=== PATIENT | male | born 1955 | race Caucasian/White ===

== ENCOUNTER 2018-02-17 00:15 | Outpatient (CLI) | payer BC, SELFPAY ==
[2018-02-17 10:45] LABS: Anion Gap 8.9 mmol/L (3-11); BUN 23 mg/dL (7-18); CO2 27.1 mmol/L (21.0-32.0); CREATININE 1.34 mg/dL (0.70-1.30); Chloride 103 mmol/L (98-107); Estimated GFR 54.19 (mL/min/1.73m2); Glucose 96 mg/dL (70-100); Potassium 4.4 mmol/L (3.5-5.1); Sodium 139 mmol/L (136-145); TSH 5.02 uIU/mL (0.358-3.74)
== END 2018-02-17 00:35 ==
PROVIDERS: PCP General Practice; Visit Provider General Practice
DX: I10 Essential (primary) hypertension (principal); E03.9 Hypothyroidism, unspecified; R73.01 Impaired fasting glucose
CPT/HCPCS: 36415; 80051; 82947; 84520; 82565; 84443

== ENCOUNTER 2019-02-18 01:33 | Outpatient (CLI) | payer BC, SELFPAY ==
[2019-02-18 09:57] LABS: CREATININE 1.46 mg/dL (0.70-1.30); Estimated GFR 48.92 (mL/min/1.73m2); Glucose 94 mg/dL (70-100); Potassium 4.1 mmol/L (3.5-5.1); TSH 6.35 uIU/mL (0.36-3.74)
== END 2019-02-18 01:53 ==
PROVIDERS: PCP General Practice; Visit Provider General Practice
DX: Z00.00 Encounter for general adult medical examination without abnormal findings (principal); I10 Essential (primary) hypertension; E03.9 Hypothyroidism, unspecified
CPT/HCPCS: 36415; 82947; 82565; 84132; 84443

== ENCOUNTER 2019-05-06 14:25 | Outpatient (REF) | payer BC, SELFPAY ==
[2019-05-06 18:34] LABS: HGB 14.6 g/dL (13.5-17.5); Mean Corp. HGB Concentration 33.2 g/dL (32.0-36.0); Mean Corpuscular Hemoglobin 31.8 pg (27.0-33.0); Mean Corpuscular Volume 95.9 fL (80-95); Mean Platelet Volume 11.8 fL (8.0-11.0); Platelet Count 216 x1000/uL (130-400); RBC 4.59 m/cumm (4.50-6.00); White Blood Cell Count 8.34 k/cumm (4.4-10.8)
[2019-05-06 18:41] LABS: Bilirubin Negative (Negative); Blood Negative (Negative); Clarity Clear (Clear); Glucose Negative (Negative); Ketones Negative (Negative); Leukocyte Esterase Negative (Negative); Nitrite Negative (Negative); Specific Gravity 1.025 (1.005-1.025); Urobilinogen 0.2 EU/dL (Up TO 0.2); pH 6.5 (5-8)
[2019-05-06 19:21] LABS: Microalb ug/mg Crea 9.5 ug/mg Cr
[2019-05-06 19:23] LABS: ALT 29 U/L (16-63); AST 18 U/L (15-37); Albumin 3.9 g/dL (3.4-5.0); Alkaline Phosphatase 74 U/L (46-116); Anion Gap 9.1 mmol/L (3-11); BUN 19 mg/dL (7-18); Bilirubin, Total 0.5 mg/dL (0.2-1.0); CO2 26.9 mmol/L (21.0-32.0); CREATININE 1.19 mg/dL (0.70-1.30); Calcium 9.2 mg/dL (8.5-10.1); Calculated LDL 62 mg/dL (<100); Chloride 103 mmol/L (98-107); Cholesterol 138 mg/dL (<200); Glucose 91 mg/dL (74-106); HDL Cholesterol 29 mg/dL (40-60); Potassium 4.2 mmol/L (3.5-5.1); Sodium 139 mmol/L (136-145); TSH (W/Ref FT4) 5.75 uIU/mL (0.36-3.74); Total Protein 7.4 g/dL (6.4-8.2); Triglyceride 237 mg/dL (<150)
[2019-05-06 19:56] LABS: FREE T4 1.11 ng/dL (0.76-1.46)
== END 2019-05-06 14:45 ==
LOC: NCHCN 14:25
PROVIDERS: PCP Nurse Practitioner Family; Visit Provider Nurse Practitioner Family
DX: E03.9 Hypothyroidism, unspecified (principal); E78.5 Hyperlipidemia, unspecified; I10 Essential (primary) hypertension
CPT/HCPCS: 80053; 80061; 85027; 81003; 82043; 82570; 84439; 84443

== ENCOUNTER 2019-06-06 14:07 | Outpatient (CLI) | payer BC, SELFPAY ==
[2019-06-10 09:39] LABS: PSA, Screening 0.4 ng/mL (0.0-4.5)
== END 2019-06-06 14:27 ==
PROVIDERS: PCP Nurse Practitioner Family; Visit Provider Nurse Practitioner Gerontology
DX: N40.1 Benign prostatic hyperplasia with lower urinary tract symptoms (principal); Z12.5 Encounter for screening for malignant neoplasm of prostate
CPT/HCPCS: 36415; 84153

== ENCOUNTER 2019-10-21 13:48 | Outpatient (REF) | payer BC, SELFPAY ==
[2019-10-21 18:17] LABS: TSH (W/Ref FT4) 4.84 uIU/mL (0.36-3.74)
[2019-10-21 18:39] LABS: FREE T4 0.99 ng/dL (0.76-1.46)
[2019-10-23 10:08] LABS: HIV-1/2 Ag & Ab Screen Negative (Negative)
[2019-10-23 10:28] LABS: Hepatitis C Ab w Rflx HCV PCR Negative (Negative)
== END 2019-10-21 14:08 ==
LOC: NCHCN 13:48
PROVIDERS: PCP Nurse Practitioner Family; Visit Provider Nurse Practitioner Family
DX: Z00.00 Encounter for general adult medical examination without abnormal findings (principal); E03.9 Hypothyroidism, unspecified; Z11.59 Encounter for screening for other viral diseases; Z11.4 Encounter for screening for human immunodeficiency virus [HIV]
CPT/HCPCS: 86803; 87389; 84439; 84443

== ENCOUNTER 2019-10-24 07:55 | Day surgery (SDC) | payer BC, SELFPAY ==
[2019-10-24 08:20] VITALS: BP 113/74; PULSE 75; RESP 16; TEMP 36.5; O2SAT 98
--- NOTE | 2019-10-24 08:46 | W.COLOREPORT ---
Date of service: 10/24/19 Time of Service: 08:46 Colonoscopy Report Date of procedure: 10/24/19 Pre-op diagnosis general: A. polyps Post-op diagnosis procedure note: same (Normal:) Procedure: Colonoscopy Surgeon: Whitney Robles Anesthesia proc note operative: MAC Estimated blood loss (mL): 0 Pathology: none sent Complications: None Disposition: same day Prep: Miralax/Dulcolax Retraction Time: 8 mins Procedure Description: After informed consent was obtained the patient was taken to the procedure room and placed in a left decubitous position. Monitors were applied and a time out was done. The patients name, date of , procedure, allergies to medications and metal in their body was reviewed. The patient was then sedated. Once sedated and comfortable a rectal exam was done. External exam was normal. He does have a lot of scarring in the rectal area from previous surgeries. Internal exam revealed a lax sphincter tone and no palpable masses. The prostate was not palpable. The scope was then introduced and retrofelexed. no internal hemorrhoids were identified. The scope was then advanced to the cecum without difficulty. The TI and appendiceal orifice were identified. The prep was good. The scope was then slowly retracted over 8 minutes back into the rectum. No polyps AVMs or diverticula are identified. The mucosa is pink and healthy.. The scope was removed and the patient was woken up and taken back to Same day surgery in stable condition. The patient tolerated the procedure well and there were no immediate complications. Follow up: The patient does not require any further repeat colonoscopies, unless they develop changes in bowel habits or other new gastrointestinal complaints.
[2019-10-24] MEDS: Lactated Ringers 1,000 ML 80 ML IV (08:56)
--- NOTE | 2019-10-24 09:35 | HPE_ITS ---
Date of service: 10/24/19 Time of Service: 09:36 Assessment and Plan Assessment and plan (1) Adenomatous colon polyp: Status: Acute Assessment and plan: Informed consent is obtained for the procedural ( explained in simple layman's terms that the pt and/or family could understand) explaining risks vs benefits and alternatives to the procedure and consequences if we do not do the procedure and need/rational for the procedure. Risks include but are not limited to: bleeding, infection, perforation of esophagus, stomach, colon, small intestines, bronchus or trachea, or PTX. This would necessitate emergency surgery to repair the damage w/ possible ostomy; and other associated complications w/ the required surgery. Also complications of anesthesia including aspiration, SC/CVA/. History of Present Illness Consults Consult date: 10/24/19 Pt seen and examined. He is here today for CE secondary to adenomatous polyps in 2011. He completed the prep. He denies any CP or SOB. He denies any abdominal pain. completed prep but ate a tuna sandwich last pm. No changes in meds or health status. Narrative: Pt seen at the request of PCP regarding colon cancer screening. Pt has had a CE in 2011, adn had an A. polyp at .. Denies problems with constipation, diarrhea. No pain or difficulty with bowel movements. Denies rectal bleeding. There is no family history of any colon cancer. Pt has not had any weight loss. Their appetite is good. No heart, lung, or kidney problems. No heartburn or indigestion. No prior colo-rectal surgery. No problems with anesthesia in the past. pt takes fiber daily. He is on baclofen which makes him constipated, but as long as he takes his fiber he is fine. Patient has a history of: DM: no CVA/SC: in 2012 CPAP use: no Blood thinners: no Kidney disease: no Review of Systems All systems reviewed & are unremarkable except as noted in HPI and below PFSH Medical History Adenomatous colon polyp (Acute) BPH (benign prostatic hyperplasia) (Chronic) Colon polyps (Acute) Foot drop, left (Acute) wears brace on (L) Hemorrhagic stroke (Acute) occured 07/16/09 HLD (hyperlipidemia) (Acute) HTN (hypertension) (Chronic) Hypothyroid (Chronic) Urinary urgency (Acute) Surgical History History of colonoscopy (Chronic) Social History Smoking/Tobacco Use Status: Never Alcohol Intake: current Alcohol Intake frequency: holidays/special occasions only Alcohol type: beer Drug use: Never Substance use type: does not use Do you feel safe at home: Yes Do you feel safe in your relationship?: Yes Meds Home Medications and Allergies Home Medications Medication Instructions Recorded Confirmed Type diltiazem HCl 240 mg PO DAILY 12/25/12 10/24/19 History lisinopril 10 mg PO DAILY 12/25/12 10/24/19 History simvastatin 20 mg PO DAILY 12/25/12 10/24/19 History baclofen 10 mg tablet 10 mg PO QHS PRN 05/09/19 10/24/19 History levothyroxine 100 mcg capsule 100 mcg PO DAILY 05/09/19 10/24/19 History multivitamin 1 cap PO DAILY 05/23/19 10/24/19 History doxazosin 4 mg tablet 8 mg PO QHS #90 tab 09/24/19 10/24/19 Rx bisacodyl 5 mg tablet,delayed 5 mg PO ONCE #4 tab 10/01/19 10/24/19 Rx release polyethylene glycol 3350 17 238 g PO ONCE #238 gm 10/01/19 10/24/19 Rx gram/dose oral powder Allergies Allergy/AdvReac Type Severity Reaction Status Date / Time No Known Allergies Allergy Unverified 10/23/19 09:52 Exam Const General: cooperative, healthy appearing, comfortable, no acute distress, well developed and well groomed Nutritional Appearance: average body habitus and well nourished Orientation: alert, awake and oriented x3 HENCO Head: normal to inspection, normocephalic and atraumatic Ears: hearing grossly normal bilaterally and external ears normal General nose exam: external nose normal Face and sinus: normal facial exam and sinuses nontender Mouth: oral mucosae normal, lip normal, tongue normal and moist mucous membranes Teeth and gingiva: dentition normal Eyes General: appearance normal, both eyes and all related structures Conjunctivae: conjunctivae normal Sclera: sclerae normal Pupils: PERRL Neck Neck: normal visual inspection and full ROM Chest Chest: normal inspection of the chest Resp Effort & Inspection: normal respiratory effort, able to speak in complete sentences, no cough, no nasal flaring, not tachypneic and no use of accessory muscles Auscultation: clear to auscultation bilaterally, no rales, no rhonchi and no wheezes Cardio Jugular venous pressure: no JVD Rate: regular rate Rhythm: regular rhythm GI Inspection: normal to inspection, no edema and non-distended Palpation: soft, no masses, nontender and No ascites Auscultation: normal bowel sounds Skin General skin exam: no rashes or lesions noted Trauma: no lacerations or abrasions Neuro General: patient alert, patient oriented x3, oriented, gait normal, moves all extremities, no focal motor deficits and CN's II-XI intact bilaterally Cognition: normal cognition Speech: speech normal Gait: normal gait Motor: muscle tone normal throughout Extrem General: normal to inspection, full ROM and no clubbing, cyanosis or edema Psych Appearance: grossly normal and well kempt Mental Status: mental status grossly normal Speech and Movement: speech and movement normal Affect: normal affect Results Last Vital Signs Temp 36.5 C 10/24/19 08:20 Pulse 75 10/24/19 08:20 Resp 16 10/24/19 08:20 BP 113/74 10/24/19 08:20 Pulse Ox 98 10/24/19 08:20 COVID-19 Screening Have you,or household,traveled outside [place] in last 14 days?: Yes Had IN PERSON contact w/suspected or confirmed C-19 person: No
--- NOTE | 2019-10-24 10:19 | W.PM.DSUDISC ---
Discharge Plan Disposition Patient Disposition: HOME Condition: Good Discharge Details Reason For Visit: colon scope Attending Provider: Whitney Robles Primary Care Provider: [place] Home Meds and New Rx's Prescriptions: Continued baclofen 10 mg tablet 10 mg PO QHS PRNRF: 0 levothyroxine 100 mcg capsule 100 mcg PO DAILY RF: 0 multivitamin Capsule 1 cap PO DAILY RF: 0 doxazosin 4 mg tablet 8 mg PO QHS Qty: 90 RF: 3 lisinopril 10 MG tablet 10 mg PO DAILY RF: 0 diltiazem HCl 240 MG capsule,extended release 24hr 240 mg PO DAILY RF: 0 simvastatin 20 MG tablet 20 mg PO DAILY RF: 0 Discontinued polyethylene glycol 3350 17 gram/dose powder 238 g PO ONCE Qty: 238 RF: 0 bisacodyl [Dulcolax (bisacodyl)] 5 mg tablet,delayed release (DR/EC) 5 mg PO ONCE Qty: 4 RF: 0 Discharge Instructions Additional Instructions: Findings:normal Follow up: does not require any further colon scopes. If you notice any unexplained weight loss, any pain or difficulty having a bowel movement, any rectal bleeding that persists for more than 2 weeks, or changes in your bowel habits, you should see your primary care provider and these symptoms may require repeat colonoscopy. Please call if you develop: fevers >101.5 Nausea or Vomiting Abdominal pain that is not transient DAY SURGERY UNIT POST COLONOSCOPY INSTRUCTIONS 1. Because there will be medication in your system for the next 24 hours, you may feel a little sleepy. Your coordination will be affected. Therefore: a. Do not drive or operate dangerous equipment for 24 hours. b. Do not drink alcohol beverages for 24 hours (not even beer). c. Plan to go home and rest for the day. 2. Generally there are no restrictions on your activity after a day or so has gone by, but you may feel a bit fatigued for a few days. 3 After you arrive home you may have a light meal and return to a normal diet as you can tolerate it without feeling sick to your stomach. 4. After surgery, you may feel pain or discomfort. This should be only transient, but if it persists please contact your doctor. 5. If there are any questions regarding the findings of your procedure, please feel free to contact your doctor. 6. If you are unable to contact your doctor with a problem, contact the hospital at [phone]. 7. Continue all your regular medications unless directed otherwise. I understand the above instructions and have no questions. Signature of Patient or Responsible Adult Escort Date/Time Name of Responsible Adult Escort Signature of Nurse Date/Time Activity:: No lifting over 20 pounds or strenuous activity x24 hours Diet:: Small light meals x24 hours Discharge Orders Discharge Orders: Discharge Order (Routine); Ordered 10/24/19 Ordered By: Whitney Robles DS: Diagnosis Discharge Diagnosis (1) Adenomatous colon polyp: Status: Acute
[2019-10-24 11:00] VITALS: BP 124/55; PULSE 63; RESP 16; TEMP 35.9; O2SAT 96
== END 2019-10-24 11:30 | disposition home or self-care (01) ==
PROVIDERS: PCP Nurse Practitioner Family; Visit Provider Surgery
PROC: 0DJD8ZZ Inspection of Lower Intestinal Tract, Via Natural or Artificial Opening Endoscopic (ICD-10-PCS; CPT 45378; principal; 2019-10-24 09:00)
DX: Z12.11 Encounter for screening for malignant neoplasm of colon (principal); Z86.010 Personal history of colon polyps
CPT/HCPCS: 45378; NC; J2704

== ENCOUNTER 2020-02-14 20:37 | Emergency (ER) | payer BC, SELFPAY ==
[2020-02-14 20:39] VITALS: BP 147/72; PULSE 73; RESP 16; TEMP 36.7; O2SAT 96
--- NOTE | 2020-02-14 20:47 | ED.GENADUL_ITS ---
Discharge Plan Disposition Patient Disposition: [facility] Condition: Good Discharge Details Clinical Impression: Chronic right-sided back pain, Lesion of bone of thoracic spine Primary Care Provider: [facility] ED Provider: Federico Kwok Home Meds and New Rx's Prescriptions: No Action baclofen 10 mg tablet 10 mg PO QHS PRNRF: 0 levothyroxine 100 mcg capsule 100 mcg PO DAILY RF: 0 multivitamin Capsule 1 cap PO DAILY RF: 0 doxazosin 4 mg tablet 8 mg PO QHS Qty: 90 RF: 3 lisinopril 10 MG tablet 10 mg PO DAILY RF: 0 diltiazem HCl 240 MG capsule,extended release 24hr 240 mg PO DAILY RF: 0 simvastatin 20 MG tablet 20 mg PO DAILY RF: 0 Medical Decision Making This is a 64 year old male with a past medical history of hypertension, high cholesterol, hemorrhagic stroke with chronic left-sided deficits subsequently because of this, who presents today for evaluation of back pain. Patient states that for the last 3 to 4 weeks he has had mild right-sided back pain which he attributes to using an uneven distribution of muscles secondary to his chronic left-sided deficits. He denies any recent falls, he denies any falls preceding the onset of symptoms. He presents tonight because he states that he has been getting worse and he has not been able to sleep. He denies any new associated numbness or tingling. He does admit to difficulty with urination and bowel movements and has not had a bowel movement for the last couple of days however he states that this is not overly typical for him. He denies any new focal weakness. He denies any fever or chills, IV illicit drug use or other complaints. Physical exam demonstrates mild reproducible tenderness over T12-L1 on the right just off of midline. No deficit ulcer or rash. The patient does have baseline neurologic deficit in the left lower extremity, baseline weakness. Does not appear to demonstrate any sarah saddle anesthesia. He has historical components of bowel and bladder difficulties seem to be more chronic than acute however this all does lead to some concern. Because of his age, and his symptoms and clinical history we will get a CT scan to evaluate for fracture or significant abnormality. We will give NSAIDs and muscle relaxants help with the pain. Will monitor closely. 11:[address] scan results have returned, concerning findings are present with metastatic T12 lesion, virtual radiology suspects concern for extension into the epidural space/spinal canal with clear MRI recommendation. There is also evidence of a notable left renal mass concerning for renal cell carcinoma, suspected metastatic lesions in the lungs and other areas. Repeat exam is challenging to differentiate acute versus chronic. While he does have some weakness on the left hand and leg, he does not have any significant rectal tone deficit, or saddle anesthesia. He continues to demonstrate good dorsiflexion of the great toe bilaterally, and he continues to only be able to excrete some small amounts of urine though. Clinically I do not see any current clear signs of overt cord compression however to be clear it is challenging with his chronic deficits when comparing to potential acute components. We did speak to department neurosurgeon Dr. Villalobos, at this time he also echoes the need for urgent MRI, and does not feel that the patient needs surgical intervention emergently at this time but does feel that the patient needs to be further evaluated. He does recommend transfer to a place where the patient can receive his MRI and be managed for his new diagnosis of renal cell carcinoma by the medical team. While we have no beds available here, I have called multiple other surrounding facilities and they also do not have MRI Capabilities over the weekend. Additionally most of our surrounding facilities are also full. This scenario is again discussed with [facility], and at this time through shared decision-making process the patient will be transferred to [facility] emergency department for MRI and neurosurgical evaluation with reassessment leading to finalize disposition. I discussed the case with the ED physician , he agrees with the assessment and plan. Patient will be transferred to the [facility] ED. I have extensively reviewed the treatment plan with the patient. I have addressed all patient concerns at this time. I have also discussed the plan with the admitting physician and they agree with the current assessment and plan and have agreed to assume responsibility for the patient. All parties demonstrate verbal understanding and agreement with our assessment and plan at this time. At time of transfer the patient was reassessed and continued to demonstrate current medical stability. No signs of acute respiratory distress requiring intubation, hemodynamic instability requiring pressor support, or rapidly declining mental status. The patient is stable for transport. FINDINGS: Vertebrae: There are skeletal degenerative changes. Multilevel vacuum disc phenomenon is seen. There is a 3.3 cm rounded lucency within the posterior aspect of vertebral body T12 with cortical thinning and cortical disruption. This is most consistent with a metastatic focus. A soft tissue component appears to extend posteriorly into the region of the epidural space/spinal canal. An MRI with and without contrast is recommended for further evaluation of this lesion and to assess the integrity of the spinal cord. Disc spaces are preserved. 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 L1-L2: No significant disc protrusion. L2-L3: No significant disc protrusion. L3-L4: Small disc bulge. L4-L5: Small disc bulge. L5-S1: Small disc bulge. Soft tissues: Partially imaged left renal mass. Please refer to CT scan of the abdomen and pelvis for further information regarding this finding. There are vascular calcifications. IMPRESSION: 1. Findings most consistent with a metastatic focus in the T12 vertebral body. There is associated cortical thinning and disruption. A soft tissue component appears to extend posteriorly into the region of the epidural space/spinal canal. An MRI with and without contrast is recommended for further evaluation of this lesion and to assess the integrity of the spinal cord. 2. Partially imaged left renal mass, worrisome for renal cell carcinoma. Please refer to CT scan of the abdomen and pelvis for further information regarding this finding. 3. Other findings/details as above. Thank you for allowing us to participate in the care of your patient. Dictated and Authenticated by: Charlotte England MD 02/14/2020 10:38 PM Eastern Time ([place] & [place]) FINDINGS: Lungs: Multiple nodular densities are noted in the lower lungs bilaterally, worrisome for metastatic disease. These measure up to [address] scan of the chest would be beneficial. Pleural space: There are small bilateral pleural effusions. Liver: Homogeneous liver. Gallbladder and bile ducts: No calcified gallstones identified. Pancreas: Homogeneous pancreas. Spleen: No splenomegaly. Adrenal glands: Normal appearance to the adrenal glands. Kidneys and ureters: There is a heterogeneous mass arising from the upper pole of the left kidney measuring approximately 8.3 cm. This is worrisome for renal cell carcinoma. Just above this lesion is a nodular soft tissue mass in the adjacent perinephric fat worrisome for disease involvement. There is also stranding of the adjacent fat which abuts the pancreatic tail. An element of infection, pancreatitis, or a small amount of ana luisa-lesional hemorrhage is not entirely excluded. Stomach and bowel: No evidence of bowel obstruction. Appendix: No evidence of appendicitis. Intraperitoneal space: No free air Vasculature: Calcifications are noted in the pelvic vasculature and seminal vesicles. Vascular calcifications are also seen elsewhere. Lymph nodes: . There is a prominent lymph node along medial aspect of the left hemidiaphragm, series 3, image 21, which measures 1.2 cm in short axis, concerning for disease involvement. There is a prominent periportal lymph node on series 3, image 26 measuring 1.0 cm in short axis for which disease involvement is not entirely excluded. Urinary bladder: Grossly within normal limits. Reproductive: See above. Bones/joints: There is a 3.3 cm rounded lucency within the posterior aspect of vertebral body T12 with cortical thinning and cortical disruption. This is most consistent with a metastatic focus. A soft tissue component appears to extend posteriorly into the region of the epidural space/spinal canal. An MRI with and without contrast is recommended for further evaluation of this lesion and to assess the integrity of the spinal cord. Soft tissues: Small fat containing umbilical hernia. IMPRESSION: 1. Left renal mass worrisome for/most consistent with renal cell carcinoma. Just above this lesion is a nodular soft tissue mass in the adjacent perinephric fat worrisome for disease involvement. There is also stranding of the adjacent fat which abuts the pancreatic tail. An element of infection, pancreatitis, or a small amount of lesional hemorrhage is not entirely excluded. Correlation suggested. This can be further evaluated with a contrast-enhanced CT scan. 2. Findings most consistent with a metastatic focus in the T12 vertebral body. There is associated cortical thinning and disruption. A soft tissue component appears to extend posteriorly into the region of the epidural space/spinal canal. An MRI with and without contrast is recommended for further evaluation of this lesion and to assess the integrity of the spinal cord. 3. Multiple nodules in the lower lungs bilaterally worrisome for/most consistent with metastatic disease. A dedicated CT scan of the chest is suggested for further evaluation. 4. Prominent lymph nodes as described for which disease involvement is not excluded. Small bilateral pleural effusions. Other findings/details as above. Thank you for allowing us to participate in the care of your patient. Dictated and Authenticated by: Charlotte England MD 02/14/2020 10:28 PM Eastern Time ([place] & [place]) HPI General Date/Time Provider Initiated Documentation: 02/14/20 20:45 . History of Present Illness 64 year old M presents to the emergency department with the chief complaint of 64-year-old male with a past medical history of previous stroke w, HPI Narrative: This is a 64 year old male with a past medical history of hypertension, high cholesterol, hemorrhagic stroke with chronic left- sided deficits subsequently because of this, who presents today for evaluation of back pain. Patient states that for the last 3 to 4 weeks he has had mild right-sided back pain which he attributes to using an uneven distribution of muscles secondary to his chronic left-sided deficits. He denies any recent falls, he denies any falls preceding the onset of symptoms. He presents tonight because he states that he has been getting worse and he has not been able to sleep. He denies any new associated numbness or tingling. He does admit to difficulty with urination and bowel movements and has not had a bowel movement for the last couple of days however he states that this is not overly typical for him. He denies any new focal weakness. He denies any fever or chills, IV illicit drug use or other complaints. Related Data Home Medications Medication Instructions Recorded Confirmed diltiazem HCl 240 mg PO DAILY 12/25/12 02/14/20 lisinopril 10 mg PO DAILY 12/25/12 02/14/20 simvastatin 20 mg PO DAILY 12/25/12 02/14/20 baclofen 10 mg tablet 10 mg PO QHS PRN 05/09/19 02/14/20 levothyroxine 100 mcg capsule 100 mcg PO DAILY 05/09/19 02/14/20 multivitamin 1 cap PO DAILY 05/23/19 02/14/20 doxazosin 4 mg tablet 8 mg PO QHS #90 tab 09/24/19 02/14/20 Previous Rx's Medication Instructions Recorded doxazosin 4 mg tablet 8 mg PO QHS #90 tab 09/24/19 Allergies Allergy/AdvReac Type Severity Reaction Status Date / Time No Known Allergies Allergy Unverified 10/23/19 09:52 General Stated Complaint: Nk/Back Pain MEGAN: 4 Review of Systems All systems reviewed & are unremarkable except as noted in HPI and below [facility] Medical History (Updated 02/15/20 @ 01:19 by Federico Kwok DO) Adenomatous colon polyp BPH (benign prostatic hyperplasia) Colon polyps Foot drop, left wears brace on (L) Hemorrhagic stroke occured 07/16/09 HLD (hyperlipidemia) HTN (hypertension) Hypothyroid Urinary urgency Surgical History History of colonoscopy Social History Smoking/Tobacco Use Status: Never Smoking risk assessment performed?: Yes Alcohol Intake: current Alcohol Intake frequency: holidays/special occasions only Alcohol type: beer Drug use: Never Substance use type: does not use Do you feel safe at home: Yes Do you feel safe in your relationship?: Yes Exam Narrative Exam Narrative: 1.Const: Well-nourished, Well-developed, appearing stated age 2.Eyes: PERRL, no conjunctival injection, and symmetrical lids. 3.ENT: Atraumatic external nose and ears. Moist MM. Neck: Symmetric, trachea midline, No thyromegaly. 4.CVS: +S1/S2, No murmurs or gallops. Peripheral pulses 2+ and equal in all extremities. Brisk capillary refill in all extremities. 5.RESP: Unlabored respiratory effort. Clear to auscultation bilaterally. No wheezes rales or rhonchi 6.GI: Soft, Nontender/Nondistended, No hepatosplenomegaly. No guarding or rebound. 7.MSK: Mild weakness in the left upper and left lower extremity, no saddle anesthesia, no significant deficit in rectal tone. Good sensation for the upper and lower extremities, 5 out of 5 strength of the right upper and lower extremity, 4 out of 5 strength for the left upper and left lower extremity. Palpation of the spine demonstrates no midline tenderness of the cervical thoracic or lumbar spine however he does have mild midline right-sided paraspinal tenderness around T12-L1. Good dorsiflexion of the great toe bilaterally 8.Skin: Warm, Dry. No rashes or lesions. No evidence of rash or decubitus ulcer 9.Neuro: vault mechanic II-XII grossly intact. Sensation grossly intact, no focal neurologic deficits. 10.Psych: (AAO) x3. Appropriate mood and affect Course Vital Signs Vital signs: Vital Signs Temperature 36.7 C 02/14/20 20:39 Pulse 73 02/14/20 20:39 Respiratory Rate 16 02/14/20 20:39 Blood Pressure 147/72 H 11/06/20 20:39 Pulse Oximetry 96 02/14/20 20:39 Temperature 36.7 C 02/14/20 20:39 Temperature Source Skin 02/14/20 20:39 Pulse 73 02/14/20 20:39 Respiratory Rate 16 02/14/20 20:39 Respiratory Effort 02/14/20 20:41 Blood Pressure 147/72 H 02/14/20 20:39 Blood Pressure Position Sitting 02/14/20 20:39 Pulse Oximetry 96 02/14/20 20:39 Pain Level 7 02/14/20 20:41
[2020-02-14] MEDS: Acetaminophen 500 MG TAB 1000 MG PO (21:03)
[2020-02-14] MEDS: Lidocaine 5% Patch 1 PATCH TP (21:03)
[2020-02-14] MEDS: Cyclobenzaprine 10 MG TAB PO (21:03)
[2020-02-14 21:21] LABS: Bilirubin Negative (Negative); Blood Negative (Negative); Clarity Sl Cloudy (Clear); Glucose Negative (Negative); Ketones Negative (Negative); Leukocyte Esterase Negative (Negative); Nitrite Negative (Negative); Specific Gravity >= 1.030 (1.005-1.025); Urobilinogen 0.2 EU/dL (Up TO 0.2); pH 5.5 (5-8)
--- NOTE | 2020-02-14 21:22 | DI.CT_ITS ---
EXAM: CT ABDOMEN PELVIS WO INDICATION: right low back pain, r/o malignancy,fx,stone. COMPARISON: CT CT LUMBAR SPINE RECONS from 02/14/2020 FINDINGS: CT examination of the abdomen and pelvis was performed without oral or IV contrast. Additional recons tructions of the lumbar spine were obtained. There are multiple pulmonary nodules in both lung bases highly suspicious for metastatic disease, the largest lies in the left lung base and measures up to about 17 millimeters in diameter. There are s mall bilateral pleural effusions. There is a large irregular mass of the upper pole of the left kidney measuring up to about 8 cm in di ameter with adjacent perinephric fat stranding and lobulated contour. The mass abuts the tail of the pancreas and the spleen, direct invasion of these organs not excluded, the mass also abuts the left a drenal gland. Left para diaphragmatic lymph node is enlarged at about 18 millimeters, suspicious for metastatic disease. No urinary tract calcification. No right or left hydronephrosis. Urinary bladder is nearly empty. No focal bowel pathology identified. No significant abdominal wall hernia. No convincing retroperit siddiqi or pelvic adenopathy. Liver and spleen are unremarkable in appearance by noncontrast criteria. Gallbladder and bile ducts are CT normal. No significant abdominal wall hernia is seen. There is a lytic lesion of the T12 vertebral body posteriorly which may invade the spinal canal. Fin dings are highly suspicious for metastatic disease. Probable 20 millimeter in diameter right femoral neck lesion also noted, suspicious for metastatic di sease. IMPRESSION: Highly suspicious examination for left upper pole renal cell carcinoma with multiple pulmonary metast ases and possible invasion of Perirenal fat and adjacent structures as described above along with a l eft para diaphragmatic lymph node measuring about 18 millimeters in diameter. Multiple pulmonary nodules seen in the lung bases, highly suspicious for metastatic disease. There is an aggressive lytic T12 vertebral body lesion highly suspicious for metastatic disease, this measures about 22 millimeters in greatest diameter and is likely to invade the spinal canal, correla tion with MR examination of this region suggested for further evaluation. Additionally, there is an apparent lytic lesion of the right femoral neck suspicious for metastatic disease. RADIATION DOSE DELIVERED: Total DLP Total DLP
[2020-02-14 21:32] LABS: Bacteria Negative HPF (Negative); C & S Indicated? No; Casts Negative LPF (Negative); Crystals Negative HPF (Negative); Epithelial Cells Rare HPF (Negative); Mucus Trace (Negative); RBC 0-2 HPF (0-2); WBC 0-2 HPF (0-5)
--- NOTE | 2020-02-14 22:05 | NUR.NOTE ---
Pt toook advil 400mg approx 1800. MD Kwok aware, hold toradol for now.
--- NOTE | 2020-02-14 22:28 | DI.VRAD_ITS ---
Addendum created by Charlotte England MD on 02/14/2020 10:43:02 PM EST: THIS REPORT CONTAINS FINDINGS THAT MAY BE CRITICAL TO PATIENT CARE. The findings were verbally communicated via telephone conference with AILIN HAMEED at 10:42 PM EST on 02/14/2020. The findings were acknowledged and understood. Initial report created on 02/14/2020 10:28:06 PM EST: PROCEDURE INFORMATION: Exam: CT Abdomen And Pelvis Without Contrast Exam date and time: 02/14/2020 9:22 PM Age: 64 years old Clinical indication: Other: Right lower back pain TECHNIQUE: Imaging protocol: Computed tomography of the abdomen and pelvis without contrast. Radiation optimization: All CT scans at this facility use at least one of these dose optimization techniques: automated exposure control; mA and/or kV adjustment per patient size (includes targeted exams where dose is matched to clinical indication); or iterative reconstruction. COMPARISON: No relevant prior studies available. FINDINGS: Lungs: Multiple nodular densities are noted in the lower lungs bilaterally, worrisome for metastatic disease. These measure up to [address] scan of the chest would be beneficial. Pleural space: There are small bilateral pleural effusions. Liver: Homogeneous liver. Gallbladder and bile ducts: No calcified gallstones identified. Pancreas: Homogeneous pancreas. Spleen: No splenomegaly. Adrenal glands: Normal appearance to the adrenal glands. Kidneys and ureters: There is a heterogeneous mass arising from the upper pole of the left kidney measuring approximately 8.3 cm. This is worrisome for renal cell carcinoma. Just above this lesion is a nodular soft tissue mass in the adjacent perinephric fat worrisome for disease involvement. There is also stranding of the adjacent fat which abuts the pancreatic tail. An element of infection, pancreatitis, or a small amount of ana luisa-lesional hemorrhage is not entirely excluded. Stomach and bowel: No evidence of bowel obstruction. Appendix: No evidence of appendicitis. Intraperitoneal space: No free air Vasculature: Calcifications are noted in the pelvic vasculature and seminal vesicles. Vascular calcifications are also seen elsewhere. Lymph nodes: . There is a prominent lymph node along medial aspect of the left hemidiaphragm, series 3, image 21, which measures 1.2 cm in short axis, concerning for disease involvement. There is a prominent periportal lymph node on series 3, image 26 measuring 1.0 cm in short axis for which disease involvement is not entirely excluded. Urinary bladder: Grossly within normal limits. Reproductive: See above. Bones/joints: There is a 3.3 cm rounded lucency within the posterior aspect of vertebral body T12 with cortical thinning and cortical disruption. This is most consistent with a metastatic focus. A soft tissue component appears to extend posteriorly into the region of the epidural space/spinal canal. An MRI with and without contrast is recommended for further evaluation of this lesion and to assess the integrity of the spinal cord. Soft tissues: Small fat containing umbilical hernia. IMPRESSION: 1. Left renal mass worrisome for/most consistent with renal cell carcinoma. Just above this lesion is a nodular soft tissue mass in the adjacent perinephric fat worrisome for disease involvement. There is also stranding of the adjacent fat which abuts the pancreatic tail. An element of infection, pancreatitis, or a small amount of lesional hemorrhage is not entirely excluded. Correlation suggested. This can be further evaluated with a contrast-enhanced CT scan. 2. Findings most consistent with a metastatic focus in the T12 vertebral body. There is associated cortical thinning and disruption. A soft tissue component appears to extend posteriorly into the region of the epidural space/spinal canal. An MRI with and without contrast is recommended for further evaluation of this lesion and to assess the integrity of the spinal cord. 3. Multiple nodules in the lower lungs bilaterally worrisome for/most consistent with metastatic disease. A dedicated CT scan of the chest is suggested for further evaluation. 4. Prominent lymph nodes as described for which disease involvement is not excluded. Small bilateral pleural effusions. Other findings/details as above. Dictated and Authenticated by: Charlotte England MD. Ordering:MCKINLEY Caballero MD
--- NOTE | 2020-02-14 22:39 | DI.VRAD_ITS ---
Addendum created by Charlotte England MD on 02/14/2020 10:43:20 PM EST: THIS REPORT CONTAINS FINDINGS THAT MAY BE CRITICAL TO PATIENT CARE. The findings were verbally communicated via telephone conference with AILIN HAMEED at 10:42 PM EST on 02/14/2020. The findings were acknowledged and understood. Initial report created on 02/14/2020 10:38:41 PM EST: PROCEDURE INFORMATION: Exam: CT Lumbar Spine Without Contrast Exam date and time: 02/14/2020 9:22 PM Age: 64 years old Clinical indication: Low back pain TECHNIQUE: Imaging protocol: Computed tomography images of the lumbar spine without contrast. Radiation optimization: All CT scans at this facility use at least one of these dose optimization techniques: automated exposure control; mA and/or kV adjustment per patient size (includes targeted exams where dose is matched to clinical indication); or iterative reconstruction. COMPARISON: CT scan of the abdomen and pelvis from the same date. FINDINGS: Vertebrae: There are skeletal degenerative changes. Multilevel vacuum disc phenomenon is seen. There is a 3.3 cm rounded lucency within the posterior aspect of vertebral body T12 with cortical thinning and cortical disruption. This is most consistent with a metastatic focus. A soft tissue component appears to extend posteriorly into the region of the epidural space/spinal canal. An MRI with and without contrast is recommended for further evaluation of this lesion and to assess the integrity of the spinal cord. Disc spaces are preserved. 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 L1-L2: No significant disc protrusion. L2-L3: No significant disc protrusion. L3-L4: Small disc bulge. L4-L5: Small disc bulge. L5-S1: Small disc bulge. Soft tissues: Partially imaged left renal mass. Please refer to CT scan of the abdomen and pelvis for further information regarding this finding. There are vascular calcifications. IMPRESSION: 1. Findings most consistent with a metastatic focus in the T12 vertebral body. There is associated cortical thinning and disruption. A soft tissue component appears to extend posteriorly into the region of the epidural space/spinal canal. An MRI with and without contrast is recommended for further evaluation of this lesion and to assess the integrity of the spinal cord. 2. Partially imaged left renal mass, worrisome for renal cell carcinoma. Please refer to CT scan of the abdomen and pelvis for further information regarding this finding. 3. Other findings/details as above. Dictated and Authenticated by: Charlotte England MD. Ordering:MCKINLEY Caballero MD
[2020-02-14 23:13] VITALS: BP 136/68; PULSE 58; RESP 18; O2SAT 97
[2020-02-14 23:14] LABS: Abs Immature Grans 0.04 10^3/uL (0.0-0.06); Absolute Basophil Count 0.02 10^3/uL (0.0-0.2); Absolute Eosinophil Count 0.03 10^3/uL (0.0-0.7); Basophils % 0.2; Eosinophils % 0.3; HCT 41.6 % (40.0-50.0); HGB 13.7 g/dL (13.5-17.5); Immature Grans % 0.3; Lymphocytes % 12.2; MCH 31.3 pg (27.0-33.0); MCHC 32.9 % (32.0-36.0); MPV 11.3 fL (8.0-11.0); Monocytes % 5.7; Neutrophils % 81.3; Nucleated RBC 0 %; Platelet Count 233 10^3/uL (130-400); RBC 4.38 10^6/uL (4.36-5.78); RDW 12.1 % (11.8-14.1); RDW-SD 42.5 fL
[2020-02-14 23:16] LABS: Absolute Monocyte Count 0.66 10^3/uL (0.1-0.8); Absolute Neutrophil Count 9.35 10^3/uL (1.2-6.7)
[2020-02-14 23:40] LABS: ALT 13 U/L (16-63); AST 12 U/L (15-37); Albumin 3.4 g/dL (3.4-5.0); Alkaline Phosphatase 91 U/L (46-116); Anion Gap 11.3 mmol/L (3-11); BUN 26 mg/dL (7-18); Bilirubin, Total 0.4 mg/dL (0.2-1.0); CO2 23.7 mmol/L (21.0-32.0); CREATININE 1.55 mg/dL (0.70-1.30); Calcium 9.4 mg/dL (8.5-10.1); Chloride 104 mmol/L (98-107); Estimated GFR 45.51 (mL/min/1.73m2); Glucose 113 mg/dL (74-106); Potassium 4.4 mmol/L (3.5-5.1); Sodium 139 mmol/L (136-145); Total Protein 7.7 g/dL (6.4-8.2)
[2020-02-15 01:19] VITALS: BP 134/81; PULSE 65; RESP 16; O2SAT 95
== END 2020-02-15 01:25 | disposition short-term general hospital (02) ==
LOC: ER 02-15 01:24
PROVIDERS: Emergency Provider Student in an Organized Health Care Education/Training Program; PCP Nurse Practitioner Family
DX: M54.6 Pain in thoracic spine (principal); G89.29 Other chronic pain; R93.7 Abnormal findings on diagnostic imaging of other parts of musculoskeletal system; R93.422 Abnormal radiologic findings on diagnostic imaging of left kidney; I10 Essential (primary) hypertension
CPT/HCPCS: 36415; 80053; 96374; 99285; 74176; 81003; 81015; 85025

== ENCOUNTER 2020-03-02 15:38 | Outpatient (REF) | payer BC, SELFPAY ==
[2020-03-05 11:23] LABS: SARS-CoV-2 RNA Not Detected (NotDetected); SARS-CoV-2 RNA Source Nasal/Nares
== END 2020-03-02 15:58 ==
LOC: LBN 15:38
PROVIDERS: PCP Nurse Practitioner Family; Visit Provider Nurse Practitioner Adult Health
DX: Z11.59 Encounter for screening for other viral diseases (principal)
CPT/HCPCS: U0003

== ENCOUNTER 2020-03-06 18:42 | Outpatient (REF) | payer BC, SELFPAY ==
[2020-03-10 16:14] LABS: COVID-19 RT-PCR Result NEGATIVE (Negative)
== END 2020-03-06 19:02 ==
LOC: LBN 18:42
PROVIDERS: PCP Nurse Practitioner Family; Visit Provider Nurse Practitioner Adult Health
DX: Z11.59 Encounter for screening for other viral diseases (principal)
CPT/HCPCS: U0003

== ENCOUNTER 2020-03-16 23:00 | Outpatient (REF) | payer BC, SELFPAY ==
[2020-03-18 17:16] LABS: COVID-19 RT-PCR Result Not Detected ((See Note))
== END 2020-03-16 23:20 ==
LOC: LBN 23:00
PROVIDERS: PCP Nurse Practitioner Family; Visit Provider Nurse Practitioner Adult Health
DX: Z11.59 Encounter for screening for other viral diseases (principal)
CPT/HCPCS: U0003

== ENCOUNTER 2020-03-20 17:49 | Outpatient (REF) | payer BC, SELFPAY ==
[2020-03-23 06:55] LABS: COVID-19 RT-PCR UVMMC Result Negative (Negative)
== END 2020-03-20 18:09 ==
LOC: LBN 17:49
PROVIDERS: PCP Nurse Practitioner Family; Visit Provider Nurse Practitioner Adult Health
DX: Z11.59 Encounter for screening for other viral diseases (principal)
CPT/HCPCS: U0003

== ENCOUNTER 2020-03-26 20:34 | Outpatient (REF) | payer BC, SELFPAY ==
[2020-03-30 09:55] LABS: COVID-19 RT-PCR Result Not detected ((See Note))
== END 2020-03-26 20:54 ==
LOC: LBN 20:34
PROVIDERS: PCP Nurse Practitioner Family; Visit Provider Nurse Practitioner Adult Health
DX: Z11.59 Encounter for screening for other viral diseases (principal)
CPT/HCPCS: U0003

== ENCOUNTER 2020-03-29 15:16 | Outpatient (REF) | payer BC, SELFPAY ==
[2020-03-29 20:18] LABS: Bilirubin Negative (Negative); Blood Small (Negative); Clarity Cloudy (Clear); Glucose Negative (Negative); Ketones Negative (Negative); Leukocyte Esterase Small (Negative); Nitrite Negative (Negative); Specific Gravity 1.025 (1.005-1.025); Urobilinogen 0.2 EU/dL (Up TO 0.2)
[2020-03-29 20:31] LABS: Bacteria Many HPF (Negative); C & S Indicated? C&S Done As Ordered; WBC >50 HPF (0-5)
[2020-03-31 16:37] LABS: COVID-19 RT-PCR Result Not Detected ((See Note))
== END 2020-03-29 15:36 ==
LOC: LBN 15:16
PROVIDERS: PCP Nurse Practitioner Family; Visit Provider Nurse Practitioner Adult Health
DX: N39.0 Urinary tract infection, site not specified (principal); Z11.59 Encounter for screening for other viral diseases
CPT/HCPCS: 87077; U0003; 81003; 81015; 87086; 87186

== ENCOUNTER 2020-04-02 19:16 | Outpatient (REF) | payer BC, SELFPAY ==
[2020-04-02 19:30] LABS: Bilirubin Negative (Negative); Blood Negative (Negative); Clarity Cloudy (Clear); Glucose Negative (Negative); Ketones Negative (Negative); Leukocyte Esterase Moderate (Negative); Nitrite Negative (Negative); pH 7.5 (5-8)
[2020-04-02 20:13] LABS: Bacteria Many HPF (Negative); C & S Indicated? Yes; Casts Negative LPF (Negative); Crystals Negative HPF (Negative); Epithelial Cells Negative HPF (Negative); Mucus Negative (Negative); Other Cells Negative (Negative); RBC Negative HPF (0-2); WBC >50 HPF (0-5)
== END 2020-04-02 19:36 ==
LOC: LBN 19:16
PROVIDERS: PCP Nurse Practitioner Family; Visit Provider Nurse Practitioner Adult Health
DX: R50.9 Fever, unspecified (principal); R30.0 Dysuria
CPT/HCPCS: 81003; 81015; 87086

== ENCOUNTER 2020-04-04 13:45 | Outpatient (REF) | payer BC, SELFPAY ==
[2020-04-04 14:13] LABS: Bilirubin Negative (Negative); Blood Trace-intact (Negative); Clarity Cloudy (Clear); Glucose Negative (Negative); Ketones Negative (Negative); Leukocyte Esterase Moderate (Negative); Nitrite Negative (Negative); Urobilinogen 0.2 EU/dL (Up TO 0.2); pH 7.5 (5-8)
[2020-04-04 14:26] LABS: Bacteria Packed HPF (Negative); C & S Indicated? C&S Done As Ordered
== END 2020-04-04 14:05 ==
LOC: LBN 13:45
PROVIDERS: PCP Nurse Practitioner Family; Visit Provider Family Medicine
DX: N39.0 Urinary tract infection, site not specified (principal)
CPT/HCPCS: 81003; 81015; 87086

== ENCOUNTER 2020-04-24 04:21 | Outpatient (CLI) | payer BC, SELFPAY ==
--- NOTE | 2020-04-24 | DI.RAD_ITS ---
EXAM: XR THORACOLUMB JUNCT 2V CLINICAL HISTORY: RENAL CELL CA WITH METASTATIC L1 LESION,S/P RESECTION AND T10-12 FUSION. TECHNIQUE: 2D digital imaging was performed. COMPARISON: Recent CT scan was reviewed FINDINGS: There are now stabilization poonam from L1 to T9. Compression fracture of T12 noted previously document ed. No additional fractures. No significant disc space narrowing evident. Degenerative disc diseas e noted at L L4-5 level. Vascular calcification in the abdominal aorta is evident. IMPRESSION: DATA REPOSITORY: RADIATION DOSE DELIVERED:
--- NOTE | 2020-04-24 | DI.MRI_ITS ---
EXAM: MR THORACIC SPINE WO/W CLINICAL HISTORY: ASSESS TREATMENT RESPONSE,L1 METS,S/P RESECTION,T10-L3 FUSION TECHNIQUE: Multiplanar multisequence MRI of the thoracic spine was performed without intravenous con trast. COMPARISON: CT CT ABDOMEN PELVIS WO from 02/14/[address] ABDOMEN PELVIS WO from 02/14/2020 MR MR LUMBAR SPINE WO/W from 04/24/2020 MR MR LUMBAR SPINE WO/W from 04/24/2020 CR XR THORACOLUMB JUNCT 2V from 04/24/2020 CR XR THORACOLUMB JUNCT 2V from 04/24/2020 FINDINGS: OSSEOUS: There is fixation hardware noted posteriorly extending from T9 down into the lumbosacral spi ne L2 level secured by multilevel intrapedicular screws at T9, T10, T11 (right screw only) as well as bilateral intrapedicular screws at L1 and L2 levels. The relationship of the screws relative to the superior endplates satisfactory. There is absence of a left-sided screw at the T11 level which is p robably due to what appears to be avoidance of an intraosseous hemangioma at this level. T2 axial images reveal disc protrusions at T3-4, T5-6 6, T6-7, T7-8 levels with mild compression of t he thecal sac at these levels but no prominent central canal stenosis at these levels. There is also no prominent foraminal stenosis at these levels. At the T12 level there is again noted extensive lytic involvement of the vertebral body including pos terior osseous elements with extension of metastatic disease into the pedicles and bulging of the bon e this level with the significant spinal canal stenosis, this in the region the conus medullaris. Central canal dimensions at this level measures 10 millimeter AP by 12 millimeters wide. There is no abnormal fluid collection in the epidural space nor in the paraspinal region. IMPRESSION: 1. Prominent lytic involvement of T12 vertebral body with posterior bulging of the involved posterior cortex and enlarged and both involved pedicles and symmetrical fasting, causing central spinal canal stenosis at the location of the conus medullaris as described above. 2. Supporting hardware comprised of posterior rods and intrapedicular screws appears intact as descri bed above. There is only 1 intra pedicular screw at T11 level which is right-sided, this so as to av oid the intraosseous hemangioma in the left side of T11 vertebral body. 3. Multilevel disc herniations above this level in the thoracic spinal column but no tight central sp inal canal stenosis nor significant foraminal stenosis at these levels. 4. No other thoracic vertebral body involvement evident. DATA REPOSITORY:
--- NOTE | 2020-04-24 | DI.MRI_ITS ---
EXAM: MR LUMBAR SPINE WO/W CLINICAL HISTORY: METASTATIC MALIGNANCY NEOPLASM,L1 METS,S/P RESECTION,T10-l3 FUSION. TECHNIQUE: Multiplanar multisequence MRI of the Lumbar spine was performed. COMPARISON: MR MR THORACIC SPINE WO/W from 04/24/2020 FINDINGS: There are stabilization rods from thoracic level down to L2. Pathologic fracture of T12 noted and is discussed on the thoracic study. Bones:Position of the intra pedicular screws in L1 and L2 are satisfactory relative to the superior e ndplates. With respect to the individual levels... T12-L1: There is pathologic tissue from involved T12 extending caudally. L1-2: Normal disc height and signal. No disc herniation nor central canal stenosis.No foraminal steno sis L2-3: Normal disc height. No disc herniation nor central canal stenosis.No foraminal stenosis.No face t arthropathy. L3-4: Normal disc height. No disc herniation. Mild central canal stenosis due to short AP dimension s the pedicles and some degenerative changes in the facet joints.No foraminal stenosis. L4-5: Normal disc height. Slightly decreased disc hydration signal. There is annular bulging with a small superimposed disc protrusion centrally. Moderate central canal stenosis noted Deena annular bu lging and short AP dimensions the pedicles and degenerative changes in the facet joints. No prominen t foraminal stenosis L5-S1: Normal disc height and signal. No disc herniation or central canal stenosis. No foraminal st enosis. Moderate degenerative changes in the right facet joint and mild degenerative changes in the left facet joint. Soft tissues: There is a large mass occupying the superior half of the left kidney the most probably neoplastic and probably responsible for what is seen the T12 vertebral body level IMPRESSION: 1. Findings as above. Please see separate thoracic spine MRI report dictated today. 2. Large solid mass noted in the left kidney, consistent with neoplastic lesion. DATA REPOSITORY:
[2020-04-24] MEDS: Normal Saline Flush 10 ML SYR IVP (11:00)
[2020-04-24] MEDS: Gadoterate meglumine 20 ML VIAL IVP (11:02)
== END 2020-04-24 04:41 ==
PROVIDERS: PCP Nurse Practitioner Family; Visit Provider Neurological Surgery
DX: Z98.1 Arthrodesis status (principal); M48.54XA Collapsed vertebra, not elsewhere classified, thoracic region, initial encounter for fracture; I70.0 Atherosclerosis of aorta; C64.9 Malignant neoplasm of unspecified kidney, except renal pelvis; M51.24 Other intervertebral disc displacement, thoracic region; C79.51 Secondary malignant neoplasm of bone; N28.89 Other specified disorders of kidney and ureter; M48.061 Spinal stenosis, lumbar region without neurogenic claudication
CPT/HCPCS: 72158; 72080; 72157

== ENCOUNTER 2020-06-03 12:10 | Outpatient (REF) | payer BC, SELFPAY ==
[2020-06-03 13:06] LABS: Abs Immature Grans 0.04 10^3/uL (0.0-0.06); Absolute Basophil Count 0.03 10^3/uL (0.0-0.2); Absolute Eosinophil Count 0.12 10^3/uL (0.0-0.7); Absolute Lymphocyte Count 0.75 10^3/uL (1.2-3.4); Absolute Monocyte Count 0.85 10^3/uL (0.1-0.8); Absolute Neutrophil Count 8.46 10^3/uL (1.2-6.7); Basophils % 0.3; Eosinophils % 1.2; HCT 34.6 % (40.0-50.0); HGB 11.1 g/dL (13.5-17.5); Immature Grans % 0.4; Lymphocytes % 7.3; MCH 29.6 pg (27.0-33.0); MCHC 32.1 % (32.0-36.0); MCV 92.3 fL (80-95); MPV 11.9 fL (8.0-11.0); Monocytes % 8.3; Neutrophils % 82.5; Nucleated RBC 0 %; Platelet Count 216 10^3/uL (130-400); RBC 3.75 10^6/uL (4.36-5.78); RDW 14.2 % (11.8-14.1); RDW-SD 48.1 fL; WBC 10.25 10^3/uL (4.4-10.8)
[2020-06-03 13:25] LABS: ALT 8 U/L (16-63); AST 8 U/L (15-37); Albumin 2.9 g/dL (3.4-5.0); Alkaline Phosphatase 80 U/L (46-116); Anion Gap 12.3 mmol/L (3-11); BUN 17 mg/dL (7-18); Bilirubin, Total 0.3 mg/dL (0.2-1.0); CO2 24.7 mmol/L (21.0-32.0); CREATININE 1.2 mg/dL (0.70-1.30); Calcium 8.6 mg/dL (8.5-10.1); Chloride 101 mmol/L (98-107); FREE T4 1.25 ng/dL (0.76-1.46); Glucose 119 mg/dL (74-106); Sodium 138 mmol/L (136-145); TSH 3.71 uIU/mL (0.36-3.74); Total Protein 6.8 g/dL (6.4-8.2)
== END 2020-06-03 12:11 | disposition home or self-care (01) ==
LOC: LBN 12:10
PROVIDERS: PCP Nurse Practitioner Family; Visit Provider Internal Medicine
DX: C79.51 Secondary malignant neoplasm of bone (principal); C64.9 Malignant neoplasm of unspecified kidney, except renal pelvis; E03.9 Hypothyroidism, unspecified
CPT/HCPCS: 80053; 84439; 84443; 85025

== ENCOUNTER 2020-06-17 15:44 | Outpatient (REF) | payer BC, SELFPAY ==
[2020-06-17 20:19] LABS: Potassium 4.1 mmol/L (3.5-5.1)
== END 2020-06-17 15:45 | disposition home or self-care (01) ==
LOC: NCHCN 15:44
PROVIDERS: PCP Nurse Practitioner Family; Visit Provider Nurse Practitioner Family
DX: C64.2 Malignant neoplasm of left kidney, except renal pelvis (principal)
CPT/HCPCS: 84132

== ENCOUNTER 2020-06-25 09:21 | Inpatient (IN) | payer MEDICARE, BC, SELFPAY ==
[2020-06-25] VITALS (26 sets, daily range): BP systolic 93–140; BP diastolic 52–84; PULSE 74–122; RESP 16–27; TEMP 36.3–37.4; O2SAT 93–96
--- NOTE | 2020-06-25 07:05 | DI.RAD_ITS ---
EXAM: XR THORACOLUMB JUNCT 2V INDICATION: compression fracture history. LLE weakness,fall. COMPARISON: MR MR LUMBAR SPINE WO/W from 04/24/2020 CR XR THORACOLUMB JUNCT 2V from 04/24/2020 CR XR THORACOLUMB JUNCT 2V from 04/24/2020 MR MR LUMBAR SPINE WO/W from 04/24/2020 CR XR PELVIS AP from 06/25/2020 TECHNIQUE: 2D digital imaging was performed. FINDINGS: Rods are noted in the thoracolumbar spine. The hardware appears intact. No acute fracture is seen. There is lucency in the L 1 vertebral body consistent with previously noted metastatic lesion. The re is stable mild compression of L1. Nodular densities are noted in the lung bases consistent with m etastases. The aorta is calcified and normal in diameter. IMPRESSION: Lytic lesion of L1 and mild L1 compression fracture. No evidence of acute fracture. Spinal rods are intact. DATA REPOSITORY: RADIATION DOSE DELIVERED:
--- NOTE | 2020-06-25 09:15 | RT.EKG_ITS ---
APPROVED REPORT Exam: Resting ECG Patient Location: E HR:117 bpm ECG Measurements Heart Rate 117 AXIS DC 173 P 21 QRSd 81 QRS 1 QT 321 T -10 QTc 449 Conclusion Sinus tachycardia...rate> 99
--- NOTE | 2020-06-25 09:30 | DI.RAD_ITS ---
EXAM: XR FEMUR RT CLINICAL HISTORY: fall, pain. TECHNIQUE: 2D digital imaging was performed. COMPARISON: No exams were available for comparison FINDINGS: There is no evidence of right femur fracture. Advanced degenerative changes in the right knee noted. No obvious hip fracture. IMPRESSION: DATA REPOSITORY: RADIATION DOSE DELIVERED:
--- NOTE | 2020-06-25 09:30 | DI.RAD_ITS ---
EXAM: XR PELVIS AP CLINICAL HISTORY: fall, pain. TECHNIQUE: 2D digital imaging was performed. COMPARISON: None FINDINGS: No evidence of pelvic nor hip fracture. Calcification is noted in the vas deferens bilaterally. No osseous lesions. IMPRESSION: DATA REPOSITORY: RADIATION DOSE DELIVERED:
[2020-06-25] MEDS: Normal Saline Flush 10 ML SYR IVP (09:50)
[2020-06-25 10:04] LABS: Abs Immature Grans 0.09 10^3/uL (0.0-0.06); Absolute Basophil Count 0.01 10^3/uL (0.0-0.2); Absolute Eosinophil Count 0.04 10^3/uL (0.0-0.7); Absolute Lymphocyte Count 0.48 10^3/uL (1.2-3.4); Absolute Neutrophil Count 9.23 10^3/uL (1.2-6.7); Basophils % 0.1; Eosinophils % 0.4; HCT 36.6 % (40.0-50.0); HGB 11.6 g/dL (13.5-17.5); Immature Grans % 0.9; Lymphocytes % 4.6; MCH 28.4 pg (27.0-33.0); MCHC 31.7 % (32.0-36.0); MCV 89.7 fL (80-95); MPV 10.4 fL (8.0-11.0); Monocytes % 5.7; Neutrophils % 88.3; Nucleated RBC 0 %; RBC 4.08 10^6/uL (4.36-5.78); RDW 14.2 % (11.8-14.1); RDW-SD 47.2 fL; WBC 10.45 10^3/uL (4.4-10.8)
--- NOTE | 2020-06-25 10:05 | ED.GENADUL_ITS ---
Discharge Plan Disposition Patient Disposition: HOME Condition: Stable Discharge Details Clinical Impression: Weakness, Fall, Acute pain of right hip, Elevated CK, ROB (acute kidney injury) Primary Care Provider: [facility] Provider: Kenny Clay Discharge Data Discharge Date/Time-TO BE ENTERED AT DEPARTURE: 06/25/20 14:30 Medical Decision Making 1014 --65-year-old male with multimedical problems including history of prior right-sided CVA with residual left-sided weakness and renal cell carcinoma on chemotherapy, here with acute on chronic left-sided weakness with fall today. Also with right-sided hip pain after fall. Screening ECG was reviewed and interpreted by me: Sinus tachycardia 117 bpm, nondiagnostic. Patient with tenderness right hip, consider fracture. Plan to obtain x-ray. Consider acute CVA versus brain mass. Plan to obtain CT of the head and if negative proceed to MRI of the brain. --X-ray of right hip, pelvis and femur are negative for fracture/dislocation. Labs reviewed: Creatinine is mildly elevated at 1.6. His CK is elevated at 600. This should be trended given he was down on the ground for couple hours concern for potential developing rhabdomyolysis. Patient was given IV fluid bolus of 500 mL normal saline. 1333 --CT of the head interpreted by radiology: No acute process. MRI of the brain reviewed and interpreted by radiology: No acute process. Attempted anterior to patient and he had difficulty standing. He usually is able to ambulate with a cane. Plan to admit given ambulatory dysfunction and for assistance with ADLs. Plan to also trend creatinine and CK. I called and spoke with Dr. Burger, on-call hospitalist, discussed presentation course, he will admit the patient. HPI General Mode of arrival: ambulatory . Date/Time Provider Initiated Documentation: 06/25/20 09:27 . Limitations to Documentation: no limitations . Information obtained by: patient . HPI Narrative: 65-year-old male with significant past medical history including right-sided CVA with chronic residual left-sided weakness, renal cell carcinoma being treated with chemotherapy, here with chief complaint of fall. Patient notes she got up this morning to go to the bathroom and returning to his room his left leg gave out. Patient notes chronic weakness of his left leg but that over the past couple days weakness seems intermittently worse. No change in severe left upper extremity weakness. No change in sensation which is diminished on the left side. Patient denies headache. He did not hit his head during the fall but did injure his right hip. Pain in his hip is 0 when lying still but does hurt moderately on attempted ambulation. No associated numbness and tingling distal right lower extremity. No other injury. Denies neck pain. Patient does note he was down on the ground for a couple hours prior to EMS arrival. Related Data Home Medications Medication Instructions Recorded Confirmed baclofen 10 mg tablet 10 mg PO QHS PRN 05/09/19 06/25/20 levothyroxine 100 mcg capsule 100 mcg PO DAILY 05/09/19 06/25/20 multivitamin 1 cap PO DAILY 05/23/19 06/25/20 hydrochlorothiazide 25 mg tablet 25 mg PO DAILY 04/30/20 06/25/20 melatonin 3 mg capsule 3 mg PO HS PRN 04/30/20 06/25/20 sennosides 8.6 mg tablet 17.2 mg PO BID PRN tab 04/30/20 06/25/20 acetaminophen 500 mg tablet 1,000 mg PO Q6H PRN tab 05/04/20 06/25/20 diltiazem HCl 240 mg PO DAILY 06/25/20 06/25/20 doxazosin 4 mg PO HS 06/25/20 06/25/20 lisinopril 10 mg PO DAILY 06/25/20 06/25/20 potassium chloride 20 meq PO DAILY 06/25/20 06/25/20 clotrimazole 1 applic TOPICAL TID #14 g 07/01/20 docusate sodium [Colace] 100 mg PO BID #0 cap 07/01/20 methocarbamol 750 mg PO QID PRN PRN #0 tab 07/01/20 nystatin 1 applic TOPICAL BID #15 g 07/01/20 pantoprazole 40 mg PO DAILY@0730 #0 tab 07/01/20 polyethylene glycol 3350 17 g PO DAILY PRN PRN #0 ea 07/01/20 prednisone 60 mg PO DIRECTED #0 tab 07/01/20 tapentadol [Nucynta] 50 mg PO Q4H PRN PRN #30 tab 07/01/20 vits A and D-white pet-lanolin 1 applic TOPICAL TID #15 g 07/01/20 zinc oxide 1 applic TOPICAL TID #28 g 07/01/20 Previous Rx's Medication Instructions Recorded clotrimazole 1 applic TOPICAL TID #14 g 07/01/20 docusate sodium [Colace] 100 mg PO BID #0 cap 07/01/20 methocarbamol 750 mg PO QID PRN PRN #0 tab 07/01/20 nystatin 1 applic TOPICAL BID #15 g 07/01/20 pantoprazole 40 mg PO DAILY@0730 #0 tab 07/01/20 polyethylene glycol 3350 17 g PO DAILY PRN PRN #0 ea 07/01/20 prednisone 60 mg PO DIRECTED #0 tab 07/01/20 tapentadol [Nucynta] 50 mg PO Q4H PRN PRN #30 tab 07/01/20 vits A and D-white pet-lanolin 1 applic TOPICAL TID #15 g 07/01/20 zinc oxide 1 applic TOPICAL TID #28 g 07/01/20 Allergies Allergy/AdvReac Type Severity Reaction Status Date / Time No Known Allergies Allergy Unverified 06/25/20 14:27 General Stated Complaint: GenMedical MEGAN: 3 Review of Systems All systems reviewed & are unremarkable except as noted in HPI and below Constitutional Constitutional: Denies fever(s) Cardiovascular Cardiovascular: Denies chest pain Neurologic Neurologic: Reports as per HPI [facility] Medical History Adenomatous colon polyp BPH (benign prostatic hyperplasia) Cancer related pain Colon polyps DNI (do not intubate) DNR (do not resuscitate) Foot drop, left wears brace on (L) Hemorrhagic stroke occured 07/16/09 HLD (hyperlipidemia) HTN (hypertension) Hypothyroid Kidney malignancy Palliative care patient POLST (Physician Orders for Life-Sustaining Treatment) Urinary urgency Surgical History History of colonoscopy Social History Smoking/Tobacco Use Status: Never Smoking risk assessment performed?: Yes Alcohol Intake: current Alcohol Intake frequency: a few times a week Alcohol type: beer Drug use: Never Substance use type: does not use Household members: none Do you feel safe at home: Yes Do you feel safe in your relationship?: Yes Exam Const General: cooperative and no acute distress HENMT Mouth: moist mucous membranes Eyes Conjunctivae: normal conjunctivae Sclera: normal sclerae Neck Neck: trachea midline and supple Resp Auscultation: clear to auscultation bilaterally, no rales, no rhonchi and no wheezes Cardio Rate: regular rate and not tachycardic Rhythm: regular rhythm GI Palpation: soft, not firm, no guarding, no masses, not rigid and nontender Skin Rashes: rashes noted (yeast infection groin) Neuro General: patient alert, patient awake, patient oriented x3 and tone normal Cognition: normal cognition Speech: speech normal Other: 3/5 weakness left lower extremity, 1/5 weakness left upper extremity, 5/5 right upper and lower extremity; diminished sensation to light touch left upper and left lower extremity; left facial weakness Extrem Right lower extremity: hip/thigh Details: tenderness Location: of the hip Location: laterally Psych Appearance: grossly normal Mental Status: mental status grossly normal Speech and Movement: speech and movement normal Course Vital Signs Vital signs: Vital Signs Temperature 36.3 C L 06/25/20 09:22 Pulse 122 H 06/25/20 09:22 Blood Pressure 119/67 06/25/20 09:22 Pulse Oximetry 94 06/25/20 09:22 Temperature 36.3 C L 06/25/20 09:22 Temperature Source Skin 06/25/20 09:22 Pulse 122 H 06/25/20 09:22 Respiratory Rate 22 06/25/20 09:35 Respiratory Effort 06/25/20 09:35 Blood Pressure 119/67 06/25/20 09:22 Pulse Oximetry 94 06/25/20 09:22 Oxygen Delivery Method Room Air 06/25/20 09:22 Oxygen Flow Rate 0 06/25/20 09:22 Pain Level 0 06/25/20 09:22
[2020-06-25 10:17] LABS: ALT 14 U/L (16-63); AST 25 U/L (15-37); Alkaline Phosphatase 89 U/L (46-116); Anion Gap 13.6 mmol/L (3-11); BUN 34 mg/dL (7-18); Bilirubin, Total 0.3 mg/dL (0.2-1.0); CO2 24.4 mmol/L (21.0-32.0); CREATININE 1.6 mg/dL (0.70-1.30); Calcium 9.6 mg/dL (8.5-10.1); Chloride 102 mmol/L (98-107); Creatine Kinase 696 U/L (39-308); Estimated GFR 43.74 (mL/min/1.73m2); Glucose 88 mg/dL (74-106); Magnesium 2.1 mg/dL (1.8-2.4); Potassium 3.6 mmol/L (3.5-5.1); Sodium 140 mmol/L (136-145); Total Protein 8.3 g/dL (6.4-8.2)
[2020-06-25 10:36] LABS: Platelet Count 323 10^3/uL (130-400)
--- NOTE | 2020-06-25 10:45 | DI.CT_ITS ---
EXAM: CT HEAD WO CLINICAL HISTORY: left sided acute on chronic weakness. TECHNIQUE: Imaging Protocol: Axial computed tomography images with coronal and sagittal reformatted images were created and reviewed COMPARISON: CT HEAD WITHOUT CONTRAST from 07/16/2009 FINDINGS: There are no skull fractures nor fluid in the visualized paranasal sinuses. There is no evidence of acute intracranial hemorrhage, intra or extra-axial. There is asymmetric enl argement of the right lateral ventricle, this consistent with sequelae from the large intra-axial hem orrhage which was evident July 2009. Some nonacute appearing ischemic changes noted in the outer ca psule at this level right side. No evidence of obvious new territorial infarction. Some periventric ular white matter hypodensity consistent with chronic small vessel disease noted. There is calcifica tion noted within both vertebral arteries at the skull base, more so on the left side. Also calcific ation noted within the intracavernous internal carotid arteries. IMPRESSION: Asymmetric enlargement of the right lateral ventricle, this being sequelae from the large intra-axial hemorrhage which was evident in 2009. No evidence of intracranial hemorrhage at this time. Chronic ischemic change outer capsule-external capsule right-side. Chronic white matter changes. Vascular calcification at the skull base as described above If clinically indicated follow-up MRI can be performed. Report called to ER. RADIATION DOSE DELIVERED: 768.14mGy.cm Total DLP DATA REPOSITORY: All CT scans at this facility are submitted to the National Radiology Data Registry (NRDR) Dose Index Registry (DIR) with the [employer] ([employer]). RADIATION OPTIMIZATION: All CT scans at this facility use at least one of these dose optimization te chniques: automated exposure control; mA and/or kV adjustment per patient size (includes targeted exa ms where dose is matched to clinical indication); or iterative reconstruction.
--- NOTE | 2020-06-25 11:45 | DI.MRI_ITS ---
EXAM: MR BRAIN WO CLINICAL HISTORY: acute on chronic LLE weakness, RCC, prior CVA TECHNIQUE: Multiplanar multisequence MRI of the brain was performed. COMPARISON: CT CT HEAD WO from 06/25/2020 FINDINGS: CEREBRAL PARENCHYMA: There is ex vacuo dilatation of the right lateral ventricle, this related to the large periventricular hemorrhage which was evident on the 2010 CT scan. In addition, there is cyst a strip of signal abnormality lateral to this on the right side which is at the level of the right claustrum, just medial to the right insular cortex. This is post ischemic chronic change with a rim of T2 hypointensity consistent with prior hemorrhage/hemosiderin. There is no bright signal on the T1 sequence at this level and there is no surrounding brain edema. No shift . There is no significant focal signal abnormality in the cerebellar hemispheres nor within the viky an d midbrain. There are multiple foci of signal abnormality in the periventricular white matter consistent with chr onic small vessel disease. PITUITARY GLAND: No mass nor parasellar abnormality. No obvious abnormality in the cavernous sinuses. FLOW VOIDS: The expected flow void are noted. No evidence of obvious aneurysm nor obvious vascular ma lformation. PARANASAL SINUSES: The visualized paranasal sinuses appear unremarkable. ORBITS: No obvious abnormal findings. IMPRESSION: 1. There is ex vacuo dilatation of the right lateral ventricle, this related to chronic sequelae from the large adjacent hemorrhage which was evident on the 2010 [address] scan. 2. There is a strip of signal abnormality in the right claustrum just medial to the sylvian fissure which measures 4 cm AP by 0.7 cm wide. Central aspect of this exhibits CSF signal intensity consiste nt with chronic changes. This is sequelae of the prominent hemorrhage in this region which was eviden t in 2010. The peripheral aspect of this is hypointense on T2 sequence and consistent with blood pro ducts, probably hemosiderin. 3. Chronic white matter periventricular ischemic findings. Findings called to ER physician following completion of the study 06/25/2020 DATA REPOSITORY:
--- NOTE | 2020-06-25 12:00 | DI.MRI_ITS ---
CLINICAL HISTORY: cva, acute on chronic LLE weakness. TECHNIQUE: MRA performed with [id number] sequence COMPARISON: CT and MRI reviewed FINDINGS: ANTERIOR CIRCULATION: both internal carotid arteries are patent in the skull base-carotid canals and also demonstrated to b e patent within the cavernous sinuses. The supraclinoid aspect of these vessels are patent. Both mi ddle cerebral arteries appear patent. No intraluminal thrombus. No aneurysms. Both A1 segments are patent as are the anterior cerebral arteries and there is no evidence of aneurysm at the level of th e anterior communicating artery. POSTERIOR CIRCULATION: The left vertebral artery is dominant. Both vertebral arteries contribute to the formation of the basilar artery although the right vertebral artery is thin at this level. The b asilar artery ascends with normal luminal diameter. Distally it gives off the superior cerebellar ar teries on both sides. Above this level the basilar artery terminates as patent bilateral. Posterior cerebral arteries. There are no posterior communicating arteries on either side of the sphipi-mz-Id llis. IMPRESSION: 1. Patent intracerebral arteries as described above. 2. No aneurysm is evident. 3. The left vertebral artery is dominant. See separate neck MRA study DATA REPOSITORY:
--- NOTE | 2020-06-25 12:25 | DI.MRI_ITS ---
EXAM: MR ANGIO NECK WO CLINICAL HISTORY: cva, acute on chronic LLE weakness TECHNIQUE: Noninfused neck MRA performed with [id number] sequence. COMPARISON: Relevant exams were reviewed FINDINGS: Aortic arch anatomy: Not readable at this level ANTERIOR Circulation The common carotid arteries appear patent although the exam is significantly limited. There is no ev idence of occlusion of the internal carotid arteries in the neck. These vessels are also demonstrate d be patent in the skull base-carotid canals. Posterior circulation: The left vertebral artery is dominant. Right vertebral artery is a thin vessel. Both contribute to the formation of the basilar artery at the skull base. No evidence of intraluminal thrombus within t he vertebral arteries in the foramen transversarium. No obvious dissection. IMPRESSION: Limited noninfused study. No occlusion of the carotid arteries in the neck. Left vertebral artery i s dominant. DATA REPOSITORY:
[2020-06-25] MEDS: Normal Saline 500 ML 1000 ML IV (12:45)
--- NOTE | 2020-06-25 13:15 | NUR.NOTE ---
pt drinking water Nursing Note:
--- NOTE | 2020-06-25 13:29 | NUR.NOTE ---
attempted to ambulate pt utilizing cane without success Nursing Note:
[2020-06-25 13:49] LABS: Source Nasal/Nares
--- NOTE | 2020-06-25 14:23 | W.PALLCONSUL ---
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 He was followed by Dr. Milner, [facility] He has undergone radiation and started chemo 1 1/2 weeks ago. He presented to the ED today after being found down at home. He reports that he had a fall yesterday as well. The ED staff attempted to have him ambulate but he was unable to, he is being admitted to the med/surg floor for ambulatory dysfunction and acute kidney injury. He was scheduled to have a home visit for palliative this afternoon but the ED contacted the palliative office to notify us that he was being evaluated. He was seen in the ED to discuss goals of care and CODE status. Jorden is a DNR/DNI, we completed a COLST to reflect his wishes. He is also interested in donating his body to [employer] for research. Will ask care managers to gather information for him on next steps in that regard. Jorden is aware that he may require a rehab stay prior to going home. He is hoping that he gains strength with PT and can go directly home but he will go to a rehab if it is necessary. We briefly discussed hospice. He does not want hospice at this point, but he would have a low threshold to stop chemo if he does not feel well after treatments. Palliative will follow up with him either inpatient or outpatient depending on what happens over the next couple of weeks. Assessment and Plan Assessment and plan (1) Kidney malignancy: Status: Chronic (2) Bone metastases: Status: Acute (3) ROB (acute kidney injury): Status: Acute (4) Acute pain of right hip: Status: Acute (5) Fall: Status: Acute (6) Weakness: Status: Acute (7) Hemiplegia: Status: Acute (8) Hemorrhagic stroke: Status: Acute (9) POLST (Physician Orders for Life-Sustaining Treatment): Status: Acute (10) DNR (do not resuscitate): Status: Acute (11) DNI (do not intubate): Status: Acute (12) Palliative care patient: Status: Acute Assessment and plan: Jorden Pete is a very pleasant 65-year-old man with a past medical history significant for 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 He was followed by Dr. Milner, [facility] He has undergone radiation and started chemo 1 1/2 weeks ago. His plan is to have chemotherapy once per month. He presented to the ED today after being found down at home. He reports that he had a fall yesterday as well. The ED staff attempted to have him ambulate but he was unable to, he is being admitted to the med/surg floor for ambulatory dysfunction and acute kidney injury. We discussed CODE status, he is a DNR/DNI, we completed a COLST form to reflect his wishes. He is aware that he may need a rehab stay prior to going home. He would prefer to go directly home if possible. We briefly discussed hospice, he is open to the idea of hospice when he is ready. He is not yet ready to stop treatments. If he does not feel well after receiving chemo, he would have a low threshold to stop. Palliative will follow up either in patient or outpatient, depending on what happens over the next several days. Review of Systems Narrative: He reports that he has been doing well post chemo up until the last couple of days when he experienced increased weakness. He has been eating and drinking and tolerating his diet. He denies pain at rest. When he has pain, it is usually in his back. He was able to stand but unable to ambulate in the ED. He denies SOB, coughing, wheezing, CP/pressure, or palpitations. [facility] Medical History Adenomatous colon polyp BPH (benign prostatic hyperplasia) Cancer related pain Colon polyps Foot drop, left wears brace on (L) Hemorrhagic stroke occured 07/16/09 HLD (hyperlipidemia) HTN (hypertension) Hypothyroid Kidney malignancy Urinary urgency Surgical History History of colonoscopy Social History Smoking/Tobacco Use Status: Never Smoking risk assessment performed?: Yes Alcohol Intake: current Alcohol Intake frequency: a few times a week Alcohol type: beer Drug use: Never Substance use type: does not use Household members: none Do you feel safe at home: Yes Do you feel safe in your relationship?: Yes Exam Narrative Exam Narrative: General: Appears older than stated age, skin is pale, well nourished. He is alert and oriented. HEENT: Normocephalic, atraumatic. Neck: Supple. Cardiovascular: Heart has regular rate and rhythm, no murmur appreciated, nontachycardic. Respiratory: Respirations appear even and unlabored at rest, lung sounds clear to auscultation throughout. GI: Large, round abdomen, normal active bowel sounds, nontender on palpation, nondistended. Extremities: No significant edema to BLEs. Gait not assessed. Left ankle with brace. Left hemiparesis. Results Last Vital Signs Temp 36.7 C 06/25/20 13:53 Pulse 95 H 06/25/20 13:53 Resp 16 06/25/20 13:53 BP 140/69 06/25/20 13:53 Pulse Ox 96 06/25/20 13:53 Labs Result diagrams: 06/25/20 09:50 06/25/20 09:50 Labs: Laboratory Results - last 24 hr 06/25/20 06/25/20 06/25/20 09:50 09:50 13:40 WBC 10.45 RBC 4.08 L Hgb 11.6 L Hct 36.6 L MCV 89.7 MCH 28.4 MCHC 31.7 L RDW 14.2 H Plt Count 323 D MPV 10.4 Immature Gran % 0.9 Neutrophils % 88.3 Lymphocytes % 4.6 Monocytes % 5.7 Eosinophils % 0.4 Basophils % 0.1 Nucleated RBC % 0 Absolute Neutrophils 9.23 H Absolute Lymphocytes 0.48 L Absolute Monocytes 0.60 Absolute Eosinophils 0.04 Absolute Basophils 0.01 Sodium 140 Potassium 3.6 Chloride 102 Carbon Dioxide 24.4 Anion Gap 13.6 H BUN 34 H Creatinine 1.6 H Estimated GFR/1.73 m2 43.74 Glucose 88 Calcium 9.6 Magnesium 2.1 Total Bilirubin 0.3 AST 25 ALT 14 L Alkaline Phosphatase 89 Creatine Kinase 696 H Total Protein 8.3 H Albumin 3.0 L COVID-19 Source Nasal/nares
[2020-06-25 14:43] LABS: Iron 18 ug/dL (65-175)
[2020-06-25 15:07] LABS: Vitamin B12 296 pg/mL (193-986)
--- NOTE | 2020-06-25 16:10 | W.PM.HP.N ---
Date of service: 06/25/20 Time of Service: 16:11 Assessment and Plan Assessment and plan (1) Palliative care patient: Status: Acute Assessment and plan: palliative did have visit with patient today. Appreciate their input (2) Elevated CK: Status: Acute Assessment and plan: Mild rhabdomyolysis from being immobilized for several hours. He received a bolus of 1L NS in ED. Monitor renal function. (3) HTN (hypertension): Status: Chronic Assessment and plan: Initially his SBP was in the 110's to 120's; 140's after NS bolus. Cont home Cardizem CD, Cardura, Lisinopril Monitor. (4) Renal cell adenocarcinoma: Status: Acute Assessment and plan: s/p first round of chemotx. Weakness could be related to tx. He is followed by Dr. Milner [facility]. (5) Bone metastases: Status: Acute Assessment and plan: He did not describe pain as being a factor that led to his weakness and fall to the ground. He has had previous back surgery with stabilization poonam from T9 to L1. Xrays of thoracolumbar region and MRI of lumbar spine on 04/24/2020 showed pathologic fx of T12. Repeat xrays of thoracolumbar region. History of Present Illness History of Present Illness Chief Complaint: Weakness of Lower Extremity Narrative: This is a 65 yo male with a PMH of renal cell carcinoma with bony mets, s/p radiation tx and initial chemotx 1 1/2 weeks ago, hemorrhagic CVA with left sided deficits, HLD, HTN, hypothyroidism. He is a palliative care patient. He presented to the ED with LLE weakness. On the AM of admission he had gone to the bathroom and when returning to his bedroom his left leg would not lift up. He went into a squating position then let himself down to the floor. He was on the floor for several hours until a caregiver arrived. He endorses some chronic weakness in the LLE s/p his CVA but it had become gradually more weak over the several days prior to arrival. His right hip was hurting upon arrival. No CM. He has had no fever/chills, syncope, vertigo, N/V/abd pain/diarrhea. EKG showed sinus tachycardia. Xray of right hip/pelvis/femur negative for fx/dislocation. CT head w/o acute findings. MRI brain w/o acute findings. Lab unremarkable. Review of Systems All systems reviewed & are unremarkable except as noted in HPI and below PFSH Medical History Adenomatous colon polyp BPH (benign prostatic hyperplasia) Cancer related pain Colon polyps DNI (do not intubate) DNR (do not resuscitate) Foot drop, left wears brace on (L) Hemorrhagic stroke occured 07/16/09 HLD (hyperlipidemia) HTN (hypertension) Hypothyroid Kidney malignancy Palliative care patient POLST (Physician Orders for Life-Sustaining Treatment) Urinary urgency Surgical History History of colonoscopy Social History Smoking/Tobacco Use Status: Never Smoking risk assessment performed?: Yes Alcohol Intake: current Alcohol Intake frequency: a few times a week Alcohol type: beer Drug use: Never Substance use type: does not use Household members: none Do you feel safe at home: Yes Do you feel safe in your relationship?: Yes Meds Home Medications and Allergies Allergies Allergy/AdvReac Type Severity Reaction Status Date / Time No Known Allergies Allergy Unverified 06/25/20 14:27 Home Medications Medication Instructions Recorded Confirmed Type simvastatin 20 mg PO DAILY 12/25/12 06/25/20 History baclofen 10 mg tablet 10 mg PO QHS PRN 05/09/19 06/25/20 History levothyroxine 100 mcg capsule 100 mcg PO DAILY 05/09/19 06/25/20 History multivitamin 1 cap PO DAILY 05/23/19 06/25/20 History hydrochlorothiazide 25 mg tablet 25 mg PO DAILY 04/30/20 06/25/20 History melatonin 3 mg capsule 3 mg PO HS PRN 04/30/20 06/25/20 History sennosides 8.6 mg tablet 17.2 mg PO BID PRN tab 04/30/20 06/25/20 History acetaminophen 500 mg tablet 1,000 mg PO Q6H PRN tab 05/04/20 06/25/20 History diltiazem HCl 240 mg PO DAILY 06/25/20 06/25/20 History doxazosin 4 mg PO HS 06/25/20 06/25/20 History lisinopril 10 mg PO DAILY 06/25/20 06/25/20 History potassium chloride 20 meq PO DAILY 06/25/20 06/25/20 History Exam Const General: cooperative and no acute distress Nutritional Appearance: obese Orientation: alert and oriented x3 HENMT Head: normocephalic and atraumatic Eyes Sclera: sclerae normal Pupils: PERRL Neck Neck: full ROM and no anterior neck swelling Resp Effort & Inspection: normal respiratory effort Auscultation: clear to auscultation bilaterally Cardio Jugular venous pressure: no JVD Rate: regular rate Rhythm: regular rhythm Heart Sounds: S1 normal and S2 normal GI Palpation: soft and nontender Back/Spine/Pelvis Back: no CVA tenderness and No ecchymosis Neuro General: moves all extremities Speech: speech normal Motor: other Other: Strength: LUE 1/5, RUE 5/5. RLLE and LLE ankle plantar flexion 5/5, left slightly slower to respond fully. BLE hip flexion 3/5. Extrem General: no pedal edema and no calf tenderness Psych Appearance: grossly normal Mental Status: mental status grossly normal Affect: normal affect Results Labs Result diagrams: 06/25/20 09:50 06/25/20 09:50 Labs: Laboratory Results - last 24 hr 06/25/20 06/25/20 06/25/20 09:50 09:50 09:50 WBC 10.45 RBC 4.08 L Hgb 11.6 L Hct 36.6 L MCV 89.7 MCH 28.4 MCHC 31.7 L RDW 14.2 H Plt Count 323 D MPV 10.4 Immature Gran % 0.9 Neutrophils % 88.3 Lymphocytes % 4.6 Monocytes % 5.7 Eosinophils % 0.4 Basophils % 0.1 Nucleated RBC % 0 Absolute Neutrophils 9.23 H Absolute Lymphocytes 0.48 L Absolute Monocytes 0.60 Absolute Eosinophils 0.04 Absolute Basophils 0.01 Sodium 140 Potassium 3.6 Chloride 102 Carbon Dioxide 24.4 Anion Gap 13.6 H BUN 34 H Creatinine 1.6 H Estimated GFR/1.73 m2 43.74 Glucose 88 Calcium 9.6 Magnesium 2.1 Iron 18 L Total Bilirubin 0.3 AST 25 ALT 14 L Alkaline Phosphatase 89 Creatine Kinase 696 H Total Protein 8.3 H Albumin 3.0 L Vitamin B12 296 COVID-19 Source 06/25/20 13:40 WBC RBC Hgb Hct MCV MCH MCHC RDW Plt Count MPV Immature Gran % Neutrophils % Lymphocytes % Monocytes % Eosinophils % Basophils % Nucleated RBC % Absolute Neutrophils Absolute Lymphocytes Absolute Monocytes Absolute Eosinophils Absolute Basophils Sodium Potassium Chloride Carbon Dioxide Anion Gap BUN Creatinine Estimated GFR/1.73 m2 Glucose Calcium Magnesium Iron Total Bilirubin AST ALT Alkaline Phosphatase Creatine Kinase Total Protein Albumin Vitamin B12 COVID-19 Source Nasal/nares Last Vital Signs Temp 36.7 C 06/25/20 14:18 Pulse 95 H 06/25/20 14:18 Resp 16 06/25/20 14:18 BP 140/69 06/25/20 14:18 Pulse Ox 96 06/25/20 14:18 COVID-19 Screening Have you, or household traveled for leisure in last 14 days?: No Had IN PERSON contact w/suspected or confirmed C-19 person: No
[2020-06-25 16:16] LABS: COVID-19 PCR Negative (Negative)
--- NOTE | 2020-06-25 17:42 | DI.VRAD_ITS ---
Addendum created by Galileo Andrew MD on 06/25/2020 5:42:56 PM EDT: There is significant atherosclerotic calcification of the distal abdominal aorta. Initial report created on 06/25/2020 5:42:01 PM EDT: PROCEDURE INFORMATION: Exam: XR Thoracolumbar Spine Exam date and time: 06/25/2020 3:46 PM Age: 65 years old Clinical indication: Low back pain TECHNIQUE: Imaging protocol: XR of the thoracolumbar spine. Views: 2 views. Total images: 4 COMPARISON: MR THORACIC SPINE WO/W 04/24/2020 10:05 AM FINDINGS: Bones/joints: There are bilateral intact spinal rods extending from the T8-L3 level. There have been prior lumbar bilateral laminectomies at the L2, L3 and L4 levels. There is no significant spinal curvature. There is a large lytic lesion involving the L1 vertebral body with an associated moderate compression deformity. There is lower thoracic degenerative disc space narrowing and mild spondylosis. Lumbar disc levels are relatively preserved. There is lower lumbar facet arthropathy. Soft tissues: Unremarkable. Lungs: Several nodules are identified at the lung bases. IMPRESSION: 1. Metastatic lesion involving the L1 vertebral body as demonstrated on the prior MRI. 2. Lung base pulmonary metastasis. Dictated and Authenticated by: Galileo Andrew MD. Ordering:FROILAN Mendoza MD
[2020-06-25] MEDS: Nystatin OINT 15 GM TUBE TP (20:01)
[2020-06-25] MEDS: Doxazosin 2 MG TAB 8 MG PO (21:25)
[2020-06-25] MEDS: Doxazosin 2 MG TAB 4 MG PO (21:26)
[2020-06-26 05:01] VITALS: BP 131/74; PULSE 72; RESP 18; TEMP 36.3; O2SAT 95
[2020-06-26] MEDS: Levothyroxine 100 MCG TAB PO (05:27)
[2020-06-26 07:15] LABS: Abs Immature Grans 0.04 10^3/uL (0.0-0.06); Absolute Basophil Count 0.01 10^3/uL (0.0-0.2); Absolute Eosinophil Count 0.13 10^3/uL (0.0-0.7); Absolute Lymphocyte Count 0.71 10^3/uL (1.2-3.4); Absolute Monocyte Count 0.69 10^3/uL (0.1-0.8); Absolute Neutrophil Count 5.39 10^3/uL (1.2-6.7); Basophils % 0.1; Eosinophils % 1.9; HCT 31.8 % (40.0-50.0); HGB 10.1 g/dL (13.5-17.5); Immature Grans % 0.6; Lymphocytes % 10.2; MCH 28.4 pg (27.0-33.0); MCHC 31.8 % (32.0-36.0); MCV 89.3 fL (80-95); MPV 10.6 fL (8.0-11.0); Monocytes % 9.9; Neutrophils % 77.3; Nucleated RBC 0 %; Platelet Count 273 10^3/uL (130-400); RBC 3.56 10^6/uL (4.36-5.78); RDW 14.2 % (11.8-14.1); RDW-SD 46.3 fL; WBC 6.97 10^3/uL (4.4-10.8)
[2020-06-26 07:52] LABS: Anion Gap 10.4 mmol/L (3-11); BUN 29 mg/dL (7-18); CO2 24.6 mmol/L (21.0-32.0); CREATININE 1.3 mg/dL (0.70-1.30); Calcium 9.2 mg/dL (8.5-10.1); Chloride 103 mmol/L (98-107); Creatine Kinase 2232 U/L (39-308); Estimated GFR 55.58 (mL/min/1.73m2); Glucose 87 mg/dL (74-106); Potassium 3.7 mmol/L (3.5-5.1); Sodium 138 mmol/L (136-145)
[2020-06-26] MEDS: Nystatin OINT 15 GM TUBE TP ×2 (08:10→20:57)
[2020-06-26] MEDS: hydroCHLOROthiazide 25 MG TAB PO (08:10)
[2020-06-26] MEDS: Acetaminophen 325 MG TAB 650 MG PO ×3 (08:10→21:13)
[2020-06-26 08:11] VITALS: BP 108/67; PULSE 74; RESP 20; TEMP 36.1; O2SAT 95
[2020-06-26] MEDS: Lisinopril 10 MG TAB PO (08:11)
[2020-06-26] MEDS: Potassium Chloride 20 MEQ TABCR PO (08:11)
[2020-06-26] MEDS: Simvastatin 20 MG TAB PO ×2 (08:11→21:16)
[2020-06-26] MEDS: dilTIAZem CD 120 MG CAPCR 240 MG PO (08:12)
--- NOTE | 2020-06-26 09:57 | PT.INIE ---
Date of service: 06/26/20 Time of Service: 09:57 PT Notes Visit Reasons: AMBULATORY DYSFUNCTION Physical Therapy Inpatient Initial Evaluation Date: 06/26/2020 Referring Doctor: Reji Burger MD PT Orders: PT CONSULT: Eval/treat. Precautions: Fall. Standard. Fearful of falling. Activity as tolerated. 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 X-ray of the hip is negative for fracture and dislocation. CT scan of the brain is negative for any acute process. MRI of the brain is also negative for acute process. 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 Independent with all indoor ambulation using his SPC. 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 Equipment Owned/DME: L AFO Subjective: Highly anxious about standing up from bed. Requested for a second person for safety. States that he is aware that his recently started chemotherapy may be contributing to his already weakened state. Insists on wearing left AFO to assist with dorsiflexion of left foot, admits to it being significantly loose. Objective: General Observation: Supine in bed. L AFO too loose. DIPs in L hand flexed. Surgical incision from previous back surgery well-healed. Telemetry monitoring in place. Mental Status: Alert and oriented x 4 Pain: 4?5/10 in low back area with movement ROM: Right Upper Extremity: Shoulder Flexion WFL. Shoulder abduction WFL. Elbow flexion WFL. Wrist flexion WFL. Opening and closing of hand WFL. Left Upper Extremity: Shoulder Flexion allows up to 30 degrees. Shoulder abduction allows up to 40 degrees L. Elbow flexion WFL. Wrist flexion WFL. Opening and closing of hand absent. Right Lower Extremity: Hip flexion WFL. Hip abduction WFL. Knee flexion WFL. Ankle dorsiflexion WFL. Ankle plantarflexion WFL. Left Lower Extremity: Hip flexion unable to bend any further while seated at edge of bed. Hip abduction allows up to 10 degrees. Knee flexion allows up to 90 degrees. Ankle dorsiflexion absent. Ankle plantarflexion absent due to presence of AFO. Strength: Right Upper Extremity: Shoulder flexors 4/5. Shoulder abductors 5/5. Elbow flexors 5/5. Elbow extensors 5/5. 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 Left Upper Extremity: Shoulder flexors 3-/5. Shoulder abductors 3-/5. Elbow flexors 3-/5. Elbow extensors 3-/5. Game Farm Supervisor absent. Right Lower Extremity: Hip flexors 4/5. Hip abductors 4/5. Knee flexors 4/5. Knee extensors 4-/5. Ankle dorsiflexors 4-/5. Ankle plantarflexors 4-/5. Left Lower Extremity: Hip flexors 3-/5. Hip abductors 3-/5. Knee flexors 3-/5. Knee extensors 3-5. Ankle dorsiflexors 1/5. Ankle plantarflexors 2-/5. Sensation: Intact as to pain and pressure on bilateral lower extremities. Bed Mobility/Transfers: Rolling contact-guard assist Supine to sit moderate assist with HOB at 45 degrees Sit to stand minimal assist of 2 Stand to sit contact-guard assist Bed to chair minimal assist of 2 Gait: Significantly limited to just transfers only due to high anxiety over falling. After a second person arrived in the room patient required moderate verbal cueing and encouragement to proceed with standing up. Was able to perform 2 pivots with a right foot and 2 step backs with hand-held assist of SAY Weathers and this PT. required a walking assist to left knee for stability. Patient reported significant instability during transfer. Balance: Static Sitting: Normal Dynamic Sitting: Normal Static Standing: Poor Dynamic Standing: Poor Special Tests: Mobility Limitations Standardized Measure [employer] AM-PAC 6 clicks Basic Mobility Inpatient Short Form: Raw Score: 11 CMS Score: 73% deficit Informed Consent/Education: Patient instructed in purpose of PT consult and plan of care. Assessment: Significant fear of falling, chemotherapy-induced weakness, loose fitting left AFO, residual left-sided weakness all contributed to patient's anxiety over getting out of bed for today's session. Patient required assistance of 2 people for transfer task performance and refused to walk any further for fear of falling. Patient presents with clinical signs and symptoms consistent with current/admitting diagnoses that have resulted to mobility limitations, gait instability, generalized weakness, and impairment of motor control as demonstrated by the following impairment level findings: 1. Decreased strength to left UEs/LE major muscle groups 2. Impaired standing balance 3. Impaired activity tolerance 4. Limitation of joint range of motion in left UE/LE 5. Significant fearfulness of falling Impairments are contributing to the following functional limitations: 1. Dependent bed mobility skills 2. Increased dependence with transfers 3. Inability to safely ambulate without assistive device and physical assistance 4. Increase completion time for mobility ADL performance 5. Increased fall risk 6. Inability to negotiate steps alone safely Patient is assessed as a 09181 high complexity based on the following: History: 65-year-old male with impairment level findings, functional limitations, and past medical history as indicated above Examination: Demonstrable impairment in strength, balance, and mobility level with underlying impairments and functional limitations as documented above Presentation:Evolving Decision Makin high complexity Goals: Goals X1 week 1. Supine-Sit independent 2. Sit-Supine independent 3. Sit-Stand contact-guard assist 4. Stand-Sit contact-guard assist 5. Bed-Chair contact-guard assist 6. Chair-Bed contact-guard assist 7. Minimal assist gait on level surface with use of least restrictive device for at least 30 feet without report of pain nor dyspnea 8. Fair static and dynamic standing balance/tolerance Plan of Care/Treatment Plan: 1-2x/day, 7 days/week x 1 week. Plan of care has been reviewed with the FREIGHT FLAGMAN providing the service under Physical Therapy direction. Initiate Physical Therapy intervention for strengthening, bed mobility, transfers, gait, stairs, balance training, use of assistive device. DISCHARGE RECOMMENDATIONS: Patient will benefit from home health PT services in order to progress mobility level using least restrictive assistive ambulatory device, assess home safety, identify additional equipment needs, and establish a functional maintenance program that will increase ability of patient to remain at home. TREATMENT CODE/TIME: 35433 x 25 minutes, 9753 0 x 18 minutes beginning at 9:57 AM. Thank you for the opportunity to participate in the care of this patient. Tracey Pineda PT, DPT, CLT [facility] [place], [place]
[2020-06-26] MEDS: Normal Saline 1,000 ML 150 ML IV ×2 (10:55→17:51)
--- NOTE | 2020-06-26 14:16 | PHA.REVIEW ---
Pharmacy Admission Review - Admission Clinical Review (Last Reviewed 06/25/20 @ 16:18 by Reji Burger MD) Renal cell adenocarcinoma (Acute) DNI (do not intubate) (Acute) DNR (do not resuscitate) (Acute) POLST (Physician Orders for Life-Sustaining Treatment) (Acute) Palliative care patient (Acute) Weakness (Acute) Fall (Acute) Acute pain of right hip (Acute) Elevated CK (Acute) ROB (acute kidney injury) (Acute) Hemiplegia (Acute) Bone metastases (Acute) Hemorrhagic stroke (Acute) No Known Allergies Allergy (Unverified 06/25/20 14:27) Height 5 ft 9 in Weight 103.1 kg Ambulatory Dysfunction/Rhabomyolosis - Comments Comments/Follow Ups: Recent Chemo, fall (more of a gentle slide per MD) may have been a side effect of chemo treatment. Rhabdo from being down ~ 4 hours before help arrived. Does have L sided weakness from previous stroke. Trend Creatinine Kinase, H/H. Palliative team is following. May need some rehab, will work with PT - Renal Dosing Renal Dosing: BUN 29 mg/dL (7-18) H 06/26/20 06:40 Creatinine 1.3 mg/dL (0.70-1.30) 06/26/20 06:40 Medications needing adjustments: Reviewed (CrCl~57ml/min) - Anticoagulation Anticoagulation: Hgb 10.1 g/dL (13.5-17.5) L 06/26/20 06:40 Hct 31.8 % (40.0-50.0) L 06/26/20 06:40 Plt Count 273 10^3/uL (130-400) 06/26/20 06:40 Creatinine 1.3 mg/dL (0.70-1.30) 06/26/20 06:40 DVT Prohphylaxis: Reviewed (SCDS, s/p fall, so anticoagulation not ordered at this time) - Opiate Usage Evaluate Pain Scale/Pains Meds: N/A - Relevant Labs Sodium 138 mmol/L (136-145) 06/26/20 06:40 Potassium 3.7 mmol/L (3.5-5.1) 06/26/20 06:40 Chloride 103 mmol/L (98-107) 06/26/20 06:40 Magnesium 2.1 mg/dL (1.8-2.4) 06/25/20 09:50 Electrolytes, C-Reactive P, ESR: Reviewed (Creatinine Kinase 2223, H/H 10.1/31.8 (down overnight->dilutional? NS@150ml/hr)) - DM Control DM Control: Glucose 87 mg/dL (74-106) 06/26/20 06:40 Insulin Dosing: N/A - Heart Failure/[place] EF%, REGI's, B-Blockers, Diuretics: Reviewed (Diltiazem CD, Lisinopril, Doxazosin) - BP Control BP Control: Blood Pressure 108/67 Blood Pressure 131/74 If elevated: Reviewed (well controlled) - Qtc Review If Elevated: Reviewed (QTC 449, sinus tachy on admission, currently HR 74) - IV to PO Switch IV Medications: Reviewed (just IV fluids running) - Home Meds Home Med List reviewed: Reviewed - Current meds Current Medication Order Review: Reviewed (changed some times and eliminated some duplicates)
--- NOTE | 2020-06-26 15:50 | PGE_ITS ---
Date of Service Date of service: 06/26/20 Time of Service: 15:51 Assessment and Plan Assessment and plan (1) Elevated CK: Start date: 06/26/20 Start time: 16:02 Status: Acute Assessment and plan: Increased to 2232 today NS at 150 started. Will repeat labs in am and monitor patient He is weak. Pt does not feel he would do well at home he would do better at rehab. CM to work on. (2) Palliative care patient: Start date: 06/26/20 Start time: 15:59 Status: Acute Assessment and plan: Seen by palliative yesterday he was diagnosed with metastatic renal cancer to bone 02/14/2020 under gone radiation and started chemo 1-1/2 weeks ago. At this time he does not want to go on hospice he will continued to be followed by palliative (3) HTN (hypertension): Start date: 06/26/20 Start time: 16:04 Status: Chronic Assessment and plan: Has been on soft side. Continue to monitor. IVF going at this time.. (4) Renal cell adenocarcinoma: Start date: 06/26/20 Start time: 16:04 Status: Acute Assessment and plan: s/p first round of chemotx. Weakness could be related to tx. likely also from rhabdo He is followed by Dr. Milner [facility] (5) Bone metastases: Start date: 06/26/20 Start time: 16:06 Status: Acute Assessment and plan: Xray imaging revealing There is a lytic lesion of L1 and mild L 1 compression fracture PT/oT Pain management as needed. above case discussed with Dr. cowan Subjective Subjective Patient reports: other Interval history since last seen: Mr. Pete appears [place] and ashen, exhausted, he is working with PT, he is struggling to stand up and move even small amounts, he denies pain, n/v/d. Exam Narrative Exam Narrative: General: Appears older than stated age, skin is pale ashen, well nourished. He is alert and oriented, but exhausted appearing HEENT: Normocephalic, atraumatic. Neck: Supple. Cardiovascular: Heart has regular rate and rhythm, no murmur appreciated, nont achycardic. Respiratory: Respirations appear even and unlabored at rest, lung sounds clear to auscultation throughout. GI: Large, round abdomen, normal active bowel sounds, nontender on palpation, nondistended. Extremities: No significant edema to BLEs. Gait not assessed. Left ankle with brace. Left hemiparesis. Skin, with rash under pannus with open skin tear Objective Last Vital Signs Temp 36.1 C L 06/26/20 08:11 Pulse 74 06/26/20 08:11 Resp 20 06/26/20 08:11 BP 108/67 06/26/20 08:11 Pulse Ox 95 06/26/20 08:11 Laboratory Results - last 24 hr 06/25/20 06/26/20 06/26/20 13:40 06:40 06:40 WBC 6.97 D RBC 3.56 L Hgb 10.1 L Hct 31.8 L MCV 89.3 MCH 28.4 MCHC 31.8 L RDW 14.2 H Plt Count 273 MPV 10.6 Immature Gran % 0.6 Neutrophils % 77.3 Lymphocytes % 10.2 Monocytes % 9.9 Eosinophils % 1.9 Basophils % 0.1 Nucleated RBC % 0 Absolute Neutrophils 5.39 Absolute Lymphocytes 0.71 L Absolute Monocytes 0.69 Absolute Eosinophils 0.13 Absolute Basophils 0.01 Sodium 138 Potassium 3.7 Chloride 103 Carbon Dioxide 24.6 Anion Gap 10.4 BUN 29 H Creatinine 1.3 Estimated GFR/1.73 m2 55.58 Glucose 87 Calcium 9.2 Creatine Kinase 2232 H SARS-CoV-2 (PCR) Negative
--- NOTE | 2020-06-26 15:56 | PT.INTREAT ---
Date of service: 06/26/20 Time of Service: 13:00 PT Notes Visit Reasons: AMBULATORY DYSFUNCTION Inpatient Physical Therapy Treatment Note [facility] Date: 06/26/2020 PRECAUTIONS: WBAT B SUBJECTIVE: Jorden is pleasant and agreeable to participating in PT. He reports that he is very nervous about standing due to recent falls and a development of a fear of falling. He reports that he is tired and that his R LE hurts. OBJECTIVE: PAIN: Patient c/o R LE pain with weight bearing BED MOBILITY/TRANSFERS Sit-supine: Max A x2 Sit-stand: Max A x2 Stand-sit: Min A x3 Commode-bed: [facility] Chair-commode: Mod A x2 GAIT Assistive Device: SPC Weight bearing: WBAT B Assist: Mod A x2 Distance: 3 steps to R TOILETING: Patient toileted with Max A ASSESSMENT: Patient required significant assist with all transfers and toileting due to pain and weakness. He appears limited due to fear of falling as well. PLAN: Continue with global strengthening and gait and transfer training, as tolerated. TREATMENT CODE/TIME: 40 minutes; 55995 x3 (13:00)
[2020-06-26 16:30] VITALS: BP 102/67; PULSE 68; RESP 20; TEMP 36.7; O2SAT 95
[2020-06-26 18:08] VITALS: BP 106/63; PULSE 101; RESP 16; TEMP 38.2; O2SAT 92
--- NOTE | 2020-06-26 19:49 | PDOC.CMIN ---
- If Service Date Differs Date of service: 06/26/20 Time of Service: 19:49 Care Management Initial Assess REASON FOR HOSPITALIZATION:: Ambulatory Dysfunction. PAST MEDICAL HISTORY/PAST SURGICAL HISTORY:: Medical History. Adenomatous colon polyp. BPH (benign prostatic hyperplasia). Cancer related pain. Colon polyps. DNI (do not intubate). DNR (do not resuscitate). Foot drop, left. wears brace on (L). Hemorrhagic stroke. occured 07/16/09. HLD (hyperlipidemia). HTN (hypertension). Hypothyroid. Kidney malignancy. Palliative care patient. POLST (Physician Orders for Life-Sustaining Treatment). Urinary urgency. Surgical History. History of colonoscopy PREVIOUS FUNCTIONAL STATUS/SOCIAL/FAMILY SUPPORTS:: Jorden lives in [facility], [facility]. He has private caregivers that help him for 2hrs a day. He also has several family members who assist him daily with meals. 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 He requires assistance with some ADL's. CURRENT FUNCTIONAL STATUS:: Jorden was sitting up in his chair when CM met with him. He reported that he still wasn't feeling well, and doesn't feel ready to return home. CM spoke to PT, who is recommending SNF. Jorden does not want to go to a SNF. CM spoke to the provider, who stated that he is not medically cleared, so he will work with PT over the weekend, and may regain enough strength to return home. CM will continue to follow. ADVANCE DIRECTIVES:: On file. Praveena Silveira, sister, listed as agent. Has patient been provided with info about the portal/API?: Yes Did the patient sign up for the portal?: No CODE STATUS:: DNR/DNI INSURANCE COVERAGE / FINANCIAL ISSUES:: [facility]/ BCBS CURRENT HOME/COMMUNITY SERVICES/EQUIPMENT:: private caregivers, 2hrs a day. family supports. RN, PT, OT. PRIMARY CARE PHYSICIAN:: [place] POTENTIAL DISCHARGE NEEDS:: Jorden may need SNF, or increased services at home. PATIENT/FAMILY EDUCATION NEEDS:: Review discharge instructions, discussion of self care needs and goals of care. ANTICIPATED BARRIERS TO DISCHARGE:: Mel is not agreeable to SNF, PT is recommending SNF. TRANSPORTATION:: Via private vehicle by family. PLAN:: Jorden will remain at [facility] until medically cleared. He will work with PT/OT during this admission to progress toward his goals of increased strength and independence. He will either return home vs SNF, depending on his progress. He will follow up with his PCP and discharge plan of care. CM will continue to follow.
[2020-06-26] MEDS: Doxazosin 2 MG TAB 8 MG PO (21:14)
[2020-06-26 23:20] VITALS: BP 102/60; PULSE 68; RESP 18; TEMP 36.4; O2SAT 92
--- NOTE | 2020-06-27 | DI.CT_ITS ---
EXAM: CT CHEST/ABD/PEL W CLINICAL HISTORY: bloody sputum, mets. TECHNIQUE: Imaging Protocol: Axial computed tomography images with coronal and sagittal reformatted images were created and reviewed CONTRAST MATERIAL: Intravenous: Omnipaque 350 Contrast volume:100 ml Oral: None COMPARISON: CT CT LUMBAR SPINE RECONS from 02/14/2020 FINDINGS: CHEST: LUNGS: There are multiple metastatic lesions throughout both lung garcia and there is also a large pl eural base mass in the right lateral pleura extending from anterior to posterior which corresponds to the finding on chest x-ray and consistent with neoplastic tissue with invasion of the chest wall but no overlying rib destruction.. Small amount of right-sided pleural pleural effusion noted and even lesser amount of left pleural effusion. MEDIASTINUM: There is bilateral hilar as well as mediastinal adenopathy. Visualized thyroid unremark able. CARDIAC: Heart size is normal. There is no pericardial effusion.Caliber of the thoracic aorta is wit hin normal limits. OSSEOUS: Rods are and seen from T9 through L2 vertebral bodies. There is almost complete lytic destr uction of the entire T12 vertebral body including the pedicles and laminae.. ABDOMEN: There is no ascites. LIVER: There are no focal hepatic lesions nor dilatation of intrahepatic ducts. GALLBLADDER/BILIARY: No obvious gallbladder pathology. CBD is not dilated. PANCREAS: No evidence of pancreatic mass nor dilatation of the pancreatic duct. SPLEEN: Spleen is not enlarged. There are no intrasplenic lesions. Splenic and portal veins are kennedy nt. ADRENALS: Right adrenal gland is unremarkable. KIDNEYS: There is a large malignant mass in the superior pole of the left kidney which measures appro ximately 9 in by a by 11 centimetres and invades the left adrenal gland.. Left renal vein is patent. No significant focal findings in the opposite-right kidney the exception of a few small cortical cy sts. ABDOMINAL AORTA: Calcified but not enlarged. Few slightly prominent left para-aortic lymph nodes are noted. No adenopathy around the aortic bifurcation nor along the iliac chains and there is no ingui nal adenopathy. ABDOMINAL WALL/GI: No evidence of significant anterior abdominal wall hernia. No bowel obstruction. PELVIS: LYMPH NODES: There is no intrapelvic nor inguinal adenopathy. GI: No evidence of appendicitis.No evidence of sigmoid diverticulitis. URINARY BLADDER: Slight wall thickening posteriorly. REPRODUCTIVE: Prostate size upper normal. Vas deferens calcification bilaterally OSSEOUS: There is a large lytic lesion in the right hip involving the femoral head and neck and inter trochanteric region. There is dehiscence of the posterior cortex of the femoral neck. IMPRESSION: 1. There is extensive metastatic disease involving both lungs as well as the pleural spaces and there is both hilar nor mediastinal adenopathy. There is a large pleural-based mass over the lateral aspe ct of the right lung which accounts for the finding on the chest x-ray and is consistent with metasta tic disease with invasion of the chest wall but not the overlying right ribs. There are small bilate ral pleural effusions. 2. There is a very large left kidney primary malignancy with adjacent retroperitoneal metastatic dise ase involving the surrounding tissues including the left adrenal gland. There is no tumor thrombus s een in the left renal vein. The opposite-right kidney is relatively unremarkable. 3. There is almost complete lytic pathologic involvement of the T12 vertebral body. There appears to be involvement of the spinal canal at this level. There are supporting rods and intrapedicular scre ws above and below this level. 4. There is osseous metastatic involvement of the right femoral head and neck, including dehiscence o f the posterior cortex at this level. RADIATION DOSE DELIVERED: 2,164.18mGy.cm Total DLP DATA REPOSITORY: All CT scans at this facility are submitted to the National Radiology Data Registry (NRDR) Dose Index Registry (DIR) with the [employer] (ACR). RADIATION OPTIMIZATION: All CT scans at this facility use at least one of these dose optimization te chniques: automated exposure control; mA and/or kV adjustment per patient size (includes targeted exa ms where dose is matched to clinical indication); or iterative reconstruction.
--- NOTE | 2020-06-27 | DI.RAD_ITS ---
EXAM: XR PORTABLE CHEST AP CLINICAL HISTORY: pulmonary mets. TECHNIQUE: 2D digital imaging was performed. COMPARISON: Outside chest x-ray 03/13/2020 FINDINGS: Heart size is upper normal. The mediastinum is unchanged. Smith rods are again noted in the th oracolumbar spine, previously present. There is a large pleural based density in the lateral right hemithorax, overlying the medial aspect o f the scapula but appearing to be separate entity and consistent with either loculated pleural effusi on or mass, not previously present on chest x-ray of 03/13/2020. No obvious overlying rib destructio n. There is nodular infiltrate evident in the right lung base as well as upper right lung. Also infiltr ate in the left lower lobe retrocardiac region. IMPRESSION: Bilateral infiltrates. Pleural based mass right lateral hemithorax, either neoplastic or loculated p leural effusion. This finding was not evident on chest x-ray 03/13/2020.Recommend follow-up CT scan. Sign DATA REPOSITORY: RADIATION DOSE DELIVERED:
[2020-06-27] MEDS: Normal Saline 1,000 ML 150 ML IV ×4 (00:17→21:29)
[2020-06-27] MEDS: Levothyroxine 100 MCG TAB PO (05:40)
[2020-06-27 07:28] VITALS: BP 122/63; PULSE 69; RESP 20; TEMP 36.3; O2SAT 92
[2020-06-27 07:48] LABS: HCT 31.5 % (40.0-50.0); HGB 9.9 g/dL (13.5-17.5); MCH 28.5 pg (27.0-33.0); MCHC 31.4 % (32.0-36.0); MCV 90.8 fL (80-95); MPV 10.4 fL (8.0-11.0); Platelet Count 270 10^3/uL (130-400); RBC 3.47 10^6/uL (4.36-5.78); RDW 14.3 % (11.8-14.1); RDW-SD 47.8 fL; WBC 7.05 10^3/uL (4.4-10.8)
[2020-06-27 07:55] LABS: Anion Gap 11.1 mmol/L (3-11); BUN 26 mg/dL (7-18); CO2 21.9 mmol/L (21.0-32.0); CREATININE 1.2 mg/dL (0.70-1.30); Calcium 8.6 mg/dL (8.5-10.1); Chloride 105 mmol/L (98-107); Glucose 91 mg/dL (74-106); Potassium 3.9 mmol/L (3.5-5.1); Sodium 138 mmol/L (136-145)
[2020-06-27 08:00] LABS: Creatine Kinase 787 U/L (39-308)
[2020-06-27] MEDS: Nystatin OINT 15 GM TUBE TP ×2 (08:30→20:32)
[2020-06-27] MEDS: hydroCHLOROthiazide 25 MG TAB PO (08:31)
[2020-06-27] MEDS: Potassium Chloride 20 MEQ TABCR PO (08:31)
[2020-06-27] MEDS: Lisinopril 10 MG TAB PO (08:31)
[2020-06-27] MEDS: dilTIAZem CD 120 MG CAPCR 240 MG PO (08:31)
--- NOTE | 2020-06-27 08:45 | CMPROGNOTE_ITS ---
- If Service Date Differs Date of service: 06/27/20 Time of Service: 08:45 Care Management Progress Note S/O:Jorden was lying in bed when CM met with him. He admitted that he was discouraged as he had just learned that his cancer is spreading faster than he thought it would. He had 10 radiation treatments and then started chemotherapy. He had one treatment about 10 days ago which left him feeling really ill and weak. He verbalized that he is unsure if he wants to continue treatment. He stated that he needs to think about things. He has been working on getting his affairs in order. He updated his will and advanced directives and is working on other issues. Jorden admitted that he knows he cannot care for himself like this. He is willing to go to a SNF (he has been to [facility] twice in past few months) or some other place where he can receive care. He may be a candidate for Surrogate Son if he decides to go on hospice. A: Jorden is a 65 year old man admitted on 06/26/20 with ambulatory dysfunction P:Jorden will remain at [facility] until medically cleared. He will work with PT/OT during this admission to progress toward his goals of increased strength and independence. He will either return home vs SNF, depending on his progress. He will follow up with his PCP and discharge plan of care. CM will continue to . support Jorden and his family and assess for discharge planning considerations.
[2020-06-27] MEDS: Pantoprazole 40 MG TABCR PO (09:55)
--- NOTE | 2020-06-27 12:18 | PT.INTREAT ---
PT Notes Visit Reasons: AMBULATORY DYSFUNCTION Inpatient Physical Therapy Treatment Note [facility] Date: 06/27/20 SUBJECTIVE: Jorden reports that he is doing ok. Expresses concern about walking, due to fear of falling as well as sudden weakness of left LE. OBJECTIVE: [] BED MOBILITY/TRANSFERS Sit-stand: 3x 1 min. with mod A x1 Stand-sit: CGA Bed-Chair:mod A x1 pivot transfer. GAIT Assistive Device: Platform walker Weight bearing: AT L Assist: mod A x 1 Distance: pivot transfer/ 1 step THEREX: performed a series of basic LE strengthening ex while supine in bed. Seated hip flex and LAQ, standing wt shifitng ex, see flowsheet for specific ex details. ASSESSMENT: tolerated session well. Fearful of falling. He seems to do better with a game plan. Knowing the exact steps. He did not like the platform walker, partly because he is not used to it but also because he can not get his arm onto platform independently. PLAN: will continue to work on progressing his strength and functional mobility to tolerance following PT POC. TREATMENT CODE/TIME: 30 min [id number], [id number].
--- NOTE | 2020-06-27 15:23 | W.PM.PROGNOT ---
Date of Service Date of service: 06/27/20 Time of Service: 15:23 Assessment and Plan Assessment and plan (1) Elevated CK: Start date: 06/27/20 Status: Acute Assessment and plan: Improved to 787 today Will continue IVF overnight and repeat lab in am. He still feels weak and agrees to rehab (2) Palliative care patient: Start date: 06/27/20 Start time: 16:03 Status: Acute Assessment and plan: Seen by palliative yesterday he was diagnosed with metastatic renal cancer to bone 02/14/2020 under gone radiation and started chemo 1-1/2 weeks ago. Recent imaging revealing mets to lungs along with worsening bony mets, he is willing to try steroids to help with symptoms (3) HTN (hypertension): Start date: 06/27/20 Start time: 16:04 Status: Chronic Assessment and plan: Stable (4) Renal cell adenocarcinoma: Start date: 06/27/20 Start time: 16:04 Status: Acute Assessment and plan: s/p first round of chemotx. Weakness could be related to tx. likely also from rhabdo He is followed by Dr. Milner [facility]. (5) Bone metastases: Start date: 06/27/20 Start time: 16:04 Status: Acute Assessment and plan: Xray imaging revealing There is a lytic lesion of L1 and mild L 1 compression fracture PT/oT Pain management as needed. above case discussed with Dr. Ramirez Subjective Subjective Patient reports: other Interval history since last seen: Feeling better today. Still feeling weak but better. Jorden tells me today that he recently was coughing up bloody phlegm, after reviewing films, it does review that he has pulmonary nodules consistent with mets at bases of lungs but no lung imaging. Portable cxray ordered to evaluate for lung nodules. He was also shown to have a new L1 bone mets and L2 compression fx, he is agreeable to steroids. He denies pain at this time. No nausea or vomiting Exam Narrative Exam Narrative: General: Appears older than stated age, skin pale but color appears better today well nourished. He is alert and oriented, but exhausted appearing HEENT: Normocephalic, atraumatic. Neck: Supple. Cardiovascular: Heart has regular rate and rhythm, no murmur appreciated, nontachycardic. Respiratory: Respirations appear even and unlabored at rest, lung sounds clear to auscultation throughout. GI: Large, round abdomen, normal active bowel sounds, nontender on palpation, nondistended. Extremities: No significant edema to BLEs. Gait not assessed. Left ankle with brace. Left hemiparesis. Skin, with rash under pannus with open skin tear Objective Last Vital Signs Temp 36.3 C L 06/27/20 07:28 Pulse 69 06/27/20 07:28 Resp 20 06/27/20 07:28 BP 122/63 06/27/20 07:28 Pulse Ox 92 06/27/20 07:28 Laboratory Results - last 24 hr 06/27/20 06/27/20 06/27/20 07:21 07:21 07:21 WBC 7.05 RBC 3.47 L Hgb 9.9 L Hct 31.5 L MCV 90.8 MCH 28.5 MCHC 31.4 L RDW 14.3 H Plt Count 270 MPV 10.4 Sodium 138 Potassium 3.9 Chloride 105 Carbon Dioxide 21.9 Anion Gap 11.1 H BUN 26 H Creatinine 1.2 Estimated GFR/1.73 m2 >= 60.00 Glucose 91 Calcium 8.6 Creatine Kinase 787 H
[2020-06-27 15:25] VITALS: BP 114/58; PULSE 70; RESP 18; TEMP 37.3; O2SAT 94
[2020-06-27] MEDS: predniSONE 20 MG TAB 60 MG PO (16:01)
[2020-06-27] MEDS: Senna TAB 1 TAB PO (16:10)
--- NOTE | 2020-06-27 16:15 | DI.VRAD_ITS ---
PROCEDURE INFORMATION: Exam: XR Chest Exam date and time: 06/27/2020 3:50 PM Age: 65 years old Clinical indication: Shortness of breath; Patient HX: Pulmonary mets TECHNIQUE: Imaging protocol: XR of the chest Views: 1 view. COMPARISON: [facility] XR CHEST ONE VIEW 03/13/2020 1:13 PM FINDINGS: Lungs: Opacity in the medial right base may represent pulmonary mass or pneumonia.. Pleural spaces: Large pleural based opacity in the lateral aspect of the right hemithorax was not present on the prior chest x-ray dated March 2020 . This may represent metastatic disease or loculated pleural collection. Recommend chest CT if clinically indicated. Heart/Mediastinum: Stable cardiac silhouette Bones/joints: Unremarkable. IMPRESSION: 1. Large pleural based opacity in the lateral aspect of the right hemithorax was not present on the prior chest x-ray dated March 2020 . This may represent metastatic disease or loculated pleural collection. Recommend chest CT if clinically indicated. 2. Opacity in the medial right base may represent pulmonary mass or pneumonia.. Dictated and Authenticated by: Anamaria Crocker MD. Ordering:RAFAEL Ruiz MD
[2020-06-27] MEDS: Omnipaque 350 MG/ML 50 ML BTL IJ (18:13)
[2020-06-27] MEDS: Omnipaque 350 MG/ML 100 ML BTL IJ (18:39)
[2020-06-27] MEDS: Normal Saline - Diluent 50 ML VIAL IV (18:40)
--- NOTE | 2020-06-27 19:46 | DI.VRAD_ITS ---
PROCEDURE INFORMATION: Exam: CT Chest With Contrast; Diagnostic Exam date and time: 06/27/2020 6:26 PM Age: 65 years old Clinical indication: Other: Bloody sputum; Cough; Prior surgery TECHNIQUE: Imaging protocol: Diagnostic computed tomography of the chest with contrast. COMPARISON: CT ABDOMEN PELVIS WO 02/14/2020 9:16 PM FINDINGS: Lungs: Unremarkable. No consolidation. No masses. Pleural spaces: Numerous bilateral pleural and pulmonary parenchymal masses, consistent with metastatic disease. Trace bilateral pleural effusions. Heart: Unremarkable. No cardiomegaly. No pericardial effusion. Aorta: Unremarkable. No aortic aneurysm. Lymph nodes: Prevascular, bilateral hilar, and subcarinal lymphadenopathy. Bones/joints: CT T12 pathologic fracture, with interval placement of posterior fixation hardware, paired pedicular screws at T9, T10, T11, L1, and L2. Soft tissues: Unremarkable. IMPRESSION: Metastatic disease involving both lungs, pleura, pleural spaces, and mediastinal lymph nodes. PROCEDURE INFORMATION: Exam: CT Abdomen And Pelvis With Contrast Exam date and time: 06/27/2020 6:26 PM Age: 65 years old Clinical indication: Other: Bloody sputum; Cough; Prior surgery TECHNIQUE: Imaging protocol: Computed tomography of the abdomen and pelvis with contrast. COMPARISON: CT ABDOMEN PELVIS WO 02/14/2020 9:16 PM FINDINGS: Liver: Normal. No mass. Gallbladder and bile ducts: Normal. No calcified stones. No ductal dilation. Pancreas: Normal. No ductal dilation. Spleen: Normal. No splenomegaly. Adrenal glands: Normal. No mass. Kidneys and ureters: 8.1 x 7.4 x 6.8 cm central low density mass in the left renal upper pole, with adjacent 8.4 x 3.4 by 6.2 cm soft tissue mass. Stomach and bowel: Unremarkable. No obstruction. No mucosal thickening. Appendix: No evidence of appendicitis. Intraperitoneal space: Unremarkable. No free air. No significant fluid collection. Vasculature: Mild calcified atherosclerotic disease. No abdominal aortic aneurysm. Lymph nodes: Prominent periaortic retroperitoneal lymph nodes are likely metastatic. Urinary bladder: Unremarkable as visualized. Reproductive: Unremarkable as visualized. Bones/joints: 4.4 x 3.4 x 3.4 cm lytic lesion of the posterior lower right femoral neck. Soft tissues: Unremarkable. IMPRESSION: 1. Left renal malignancy with adjacent and periaortic retroperitoneal metastatic disease. 2. Bilateral pulmonary and pleural metastatic disease with trace bilateral pleural fluid collections, likely malignant. 3. Pathologic fracture of the T12 vertebral body. 4. Osseous metastasis of the right femoral neck, concerning for impending pathologic fracture. Dictated and Authenticated by: Anselmo Morrison MD. Ordering:RAFAEL Ruiz MD
[2020-06-27] MEDS: Doxazosin 2 MG TAB 8 MG PO (21:30)
[2020-06-27] MEDS: Simvastatin 20 MG TAB PO (21:30)
[2020-06-28 01:40] VITALS: BP 108/64; PULSE 66; RESP 20; TEMP 36; O2SAT 92
[2020-06-28] MEDS: Normal Saline 1,000 ML 150 ML IV (03:50)
[2020-06-28] MEDS: Levothyroxine 100 MCG TAB PO (06:02)
[2020-06-28 07:37] LABS: HCT 30.7 % (40.0-50.0); HGB 9.9 g/dL (13.5-17.5); MCH 28.4 pg (27.0-33.0); MCHC 32.2 % (32.0-36.0); MCV 88.2 fL (80-95); MPV 10.8 fL (8.0-11.0); Platelet Count 288 10^3/uL (130-400); RBC 3.48 10^6/uL (4.36-5.78); RDW 13.9 % (11.8-14.1); RDW-SD 44.8 fL; WBC 7.37 10^3/uL (4.4-10.8)
[2020-06-28 07:52] LABS: Anion Gap 11.3 mmol/L (3-11); BUN 22 mg/dL (7-18); CO2 21.7 mmol/L (21.0-32.0); CREATININE 1.1 mg/dL (0.70-1.30); Calcium 8.7 mg/dL (8.5-10.1); Chloride 104 mmol/L (98-107); Creatine Kinase 308 U/L (39-308); Glucose 114 mg/dL (74-106); Potassium 4.3 mmol/L (3.5-5.1); Sodium 137 mmol/L (136-145)
[2020-06-28] MEDS: Docusate Sodium 100 MG CAP PO ×2 (07:54→20:28)
[2020-06-28] MEDS: Lisinopril 10 MG TAB PO (07:54)
[2020-06-28] MEDS: dilTIAZem CD 120 MG CAPCR 240 MG PO (07:54)
[2020-06-28] MEDS: hydroCHLOROthiazide 25 MG TAB PO (07:54)
[2020-06-28] MEDS: Pantoprazole 40 MG TABCR PO (07:54)
[2020-06-28] MEDS: Nystatin OINT 15 GM TUBE TP ×2 (07:54→20:28)
[2020-06-28] MEDS: Potassium Chloride 20 MEQ TABCR PO (07:54)
--- NOTE | 2020-06-28 10:49 | PDOC.CMPRO ---
- If Service Date Differs Date of service: 06/28/20 Time of Service: 10:49 Care Management Progress Note S/O:Jorden was lying in bed when CM met with him. He admitted that he was discouraged as he had just learned that his cancer is spreading faster than he thought it would. He shared that he just thought that he would have more time. He received more information today that it had spread further than he or the doctors realized and that it was likely he had only weeks to live. He informed the provider that he wanted to go on hospice, but is not sure if it will be at home or at rehab. He lives alone and is not sure if his siblings would be willing and able to care for him as required by hospice. He stated again that he needs to think about things and to talk to his siblings. Jorden will have a hospice consult tomorrow. A: Jorden is a 65 year old man admitted on 06/26/20 with ambulatory dysfunction P:Jorden will remain at [facility] until medically cleared. He has worked with PT/OT during this admission to progress toward his goals of increased strength and independence, however his new prognosis may change that plan. He will either return home vs SNF, likely on hospice. He will follow up with his PCP and discharge plan of care. CM will continue to support Jorden and his family and assess for discharge planning and end of life considerations.
--- NOTE | 2020-06-28 12:25 | NT_ITS ---
PT Notes Visit Reasons: AMBULATORY DYSFUNCTION pt pleasantly refused PT today. He reports that he was just told he has about 2- 3 weeks left to live and he would rather get his affairs in order. PT is too difficult for me right now as I have to think about every move and it is too much. BUT this is how I feel today, I may think differently tomorrow. Will check in with him tomorrow am.
[2020-06-28] MEDS: predniSONE 20 MG TAB 60 MG PO (12:29)
--- NOTE | 2020-06-28 12:33 | W.PM.PROGNOT ---
Date of Service Date of service: 06/28/20 Time of Service: 12:33 Assessment and Plan Assessment and plan (1) Elevated CK: Start date: 06/28/20 Start time: 13:06 Status: Resolved Assessment and plan: Normalized level 308 D/C IVF (2) Palliative care patient: Start date: 06/28/20 Start time: 13:07 Status: Acute Assessment and plan: Imaging done yesterday revealing severe metastatic disease likely giving jorden weeks to months. discussed with both him and his sister Praveena, he is agreeable to hospice. Consult placed. Steroid burst started as he does feel better since receiving dose yesterday will give for 5 days Nucynta at this time for pain, he has little pain at this time He would also like to visit with Sharron the aaliyah, consult placed. (3) HTN (hypertension): Start date: 06/28/20 Start time: 13:12 Status: Chronic Assessment and plan: Stable (4) Renal cell adenocarcinoma: Start date: 06/28/20 Start time: 13:12 Status: Acute Assessment and plan: s/p first round of immunotherapy suppression which is making him sick, as above (5) Bone metastases: Start date: 06/28/20 Start time: 13:12 Status: Acute Assessment and plan: Hospice consult above case discussed with Dr. Ramirez Subjective Subjective Patient reports: other Interval history since last seen: Spoke with Jorden today regarding imaging findings and prognosis. Had his sister Praveena on the phone as well on speaker. They both understand that his cancer is progressive and giving him weeks maybe months to live and that the immunotherapy is making him sick. He is agreeable to hospice. He also feels good today and would like to continue short steroid burst. He would also like a visit from Sharron, Will place hospice consult. He denies CP, he is having some spasm and pain to LLE from stroke, he wants minimal pain medication at this time, will give nucynta and robaxin. Exam Narrative Exam Narrative: General: Appears older than stated age, skin pale but color appears better today well nourished. He is alert and oriented, but exhausted appearing HEENT: Normocephalic, atraumatic. Neck: Supple. Cardiovascular: Heart has regular rate and rhythm, no murmur appreciated, nontachycardic. Respiratory: Respirations appear even and unlabored at rest, lung sounds clear to auscultation throughout. GI: Large, round abdomen, normal active bowel sounds, nontender on palpation, nondistended. Extremities: No significant edema to BLEs. Gait not assessed. Left ankle with brace. Left hemiparesis. Skin, with rash under pannus with open skin tear improving Objective Last Vital Signs Temp 36.0 C L 06/28/20 01:40 Pulse 66 06/28/20 01:40 Resp 20 06/28/20 01:40 BP 108/64 06/28/20 01:40 Pulse Ox 92 06/28/20 01:40 Laboratory Results - last 24 hr 06/28/20 06/28/20 06:55 06:55 WBC 7.37 RBC 3.48 L Hgb 9.9 L Hct 30.7 L MCV 88.2 MCH 28.4 MCHC 32.2 RDW 13.9 Plt Count 288 MPV 10.8 Sodium 137 Potassium 4.3 Chloride 104 Carbon Dioxide 21.7 Anion Gap 11.3 H BUN 22 H Creatinine 1.1 Estimated GFR/1.73 m2 >= 60.00 Glucose 114 H Calcium 8.7 Creatine Kinase 308
[2020-06-28 15:18] VITALS: BP 101/62; PULSE 65; RESP 17; TEMP 37.1; O2SAT 95
[2020-06-28] MEDS: Acetaminophen 325 MG TAB 650 MG PO (21:52)
[2020-06-28] MEDS: Methocarbamol 750 MG TAB PO (21:52)
[2020-06-28] MEDS: Simvastatin 20 MG TAB PO (21:52)
[2020-06-28] MEDS: Melatonin 3 MG TAB PO (21:52)
[2020-06-28] MEDS: Doxazosin 2 MG TAB 8 MG PO (21:53)
[2020-06-29 00:40] VITALS: BP 105/64; PULSE 72; RESP 18; TEMP 36.6; O2SAT 95
[2020-06-29 02:32] VITALS: RESP 14
[2020-06-29] MEDS: Normal Saline Flush 10 ML SYR IVP ×3 (06:33→20:45)
[2020-06-29] MEDS: Pantoprazole 40 MG TABCR PO (06:33)
[2020-06-29] MEDS: Levothyroxine 100 MCG TAB PO (06:33)
[2020-06-29 08:00] VITALS: BP 118/67; PULSE 63; RESP 18; TEMP 36.3; O2SAT 91
[2020-06-29] MEDS: Docusate Sodium 100 MG CAP PO ×2 (08:51→20:45)
[2020-06-29] MEDS: predniSONE 20 MG TAB 60 MG PO (08:51)
[2020-06-29] MEDS: hydroCHLOROthiazide 25 MG TAB PO (08:51)
[2020-06-29] MEDS: Lisinopril 10 MG TAB PO (08:52)
[2020-06-29] MEDS: dilTIAZem CD 120 MG CAPCR 240 MG PO (08:52)
[2020-06-29] MEDS: Potassium Chloride 20 MEQ TABCR PO (08:52)
--- NOTE | 2020-06-29 10:13 | OTIE_ITS ---
Occupational Therapy Notes Inpatient Occupational Therapy Evaluation Date: 06/29/20 Referring Doctor:Sara Lara NP OT Orders: Non- Urgent Precautions: Standard, fall, DNR/DNI PATIENT PROFILE/ADMITTING DIAGNOSIS: Pt is a 65 year old male who is well known to this OT in the outpatient setting. He reports that his back pain over the past months was actually stage 4 kidney cancer which has spread throughout his body. He was seen at [facility] and recently returned home. He states that he went to get up to go to the bathroom, he has started chemotherapy and noticed increased weakness in his body. As he went to get up he felt weak at the knees and said he was slowly going down. He called EMS who brought him to the ED. He was admitted to Med Surg for the following palliative consult, stage 4 kidney cancer, HTN, renal cell adencarcinoma and bone metastses. Past Medical History: Medical History Adenomatous colon polyp BPH (benign prostatic hyperplasia) Cancer related pain Colon polyps DNI (do not intubate) DNR (do not resuscitate) Foot drop, left wears brace on (L) Hemorrhagic stroke occured 07/16/09 HLD (hyperlipidemia) HTN (hypertension) Hypothyroid Kidney malignancy Palliative care patient POLST (Physician Orders for Life-Sustaining Treatment) Urinary urgency Surgical History History of colonoscopy Social History/Home Situation: At baseline pts lives in a private home and was (I) with all of his ADLs/IADL and driving. He recently retired from his job at the end of last year. He has a (L) vania UE from a stroke a number of years ago. He has close family relations with a nephew who helps him as needed. His sister and brother also live locally and he is long time member of the [facility]. Equipment owned/DME: Modified handicap car, cane, hanidcap accessible home SUBJECTIVE: Pt was lying in bed when OT arrived. He was emotional about his dx and states that he is working on getting his Will and everything in place for his family. He states that hes scared and that dying is hard when you have to process it. OBJECTIVE: General Observation: Mental Status: A&Ox3 Pain: c/o pain in his back ROM: RUE AROM WFL L UE slight elbow flexion, wrist flexion and IF movement. Pt has limited AROM d/t stroke. STRENGTH: RUE 4-/5 throughout LUE Unable to test. FUNCTIONAL MOBILITY/ADLS: BATHING Sitting in bed pt is (I) with washing his face and has AROM with his (R) UE to be able to perform his (L) UE bathing, face and abdomen (I). Based on his limitations from his stroke he will require (A) with his (R) UE and (B) LE DRESSING NT GROOMING Pt is able to brush his hair and could brush his teeth with his (R) UE but not tested at todays session but requires (A) for fine motor due to lack of AROM of his (L) TOILETING Incontinent and max (A) EATING (I) with (R) UE BALANCE: Static sitting Good Dynamic Sitting Good SPECIAL TESTS: Daily Activity Limitations Standardized Measure [facility] AM -PAC ?6 clicks? Daily Activity Inpatient Short Form: Raw score: 18 INFORMED CONSENT/EDUCATION: Pt instructed in purpose of OT Consult and plan of care. ASSESSMENT: Patient is a 65-year-old male referred to occupational therapy services with diagnosis of palliative consult, stage 4 kidney cancer, HTN, renal cell adencarcinoma and bone metastses. Patient presents with clinical signs and symptoms consistent with dx, as demonstrated by the following impairment level findings/functional limitations: Impairments in ADL/IADL and leisure activities, decreased AROM of (L) UE, decreased functional mobility required for ADL routines, pain in back, discomfort in (B) LE with standing position, decreased functional activity tolerance, decreased gross and fine motor control, inability to ambulate to bathroom at this time, notable fatigue present with sitting ADLs. Weakness due to chemotherapy. Patient is assessed as a high 09206 complexity based on the following: History: see above Examination: see functional limitations as noted above Presentation: evolving Decision Making: High complexity based on current level of functions and impair ments. GOALS Goals x1 week 1. Grooming- with (A) set up pt will be (I) with brushing his teeth 2. Dressing- Min (A) UE 3. Bathing- (I) UE, max (A) LE PLAN OF CARE/TREATMENT PLAN: 1x/day, 5 days/ week x 1week Initiate Occupational Therapy Services for bathing, dressing, grooming, toileting, eating, transfer training. DISCHARGE RECOMMENDATIONS OT recommends that pt go hospice care and continues his services/care with understanding to his comfort levels and needs. TREATMENT TIME/MINUTES/CODES 91125, 25 minutes (08:10) Amy Hou OTR/L [facility]
--- NOTE | 2020-06-29 13:32 | W.NUTRFU ---
Date of service: 06/29/20 Time of Service: 13:32 Nutritional Follow up NOTE: 65 year old male admitted with renal cell carcinoma with mets. Following heart healthy diet with excellent intake (>75%). Nursing reports will discharge home on hospice. Time Spent in Nutritional Counseling and Treatment: 0
[2020-06-29] MEDS: Methocarbamol 750 MG TAB PO ×2 (15:44→20:45)
--- NOTE | 2020-06-29 15:50 | W.PM.PROGNOT ---
Date of Service Date of service: 06/29/20 Time of Service: 15:50 Assessment and Plan Assessment and plan (1) Palliative care patient: Start date: 06/29/20 Start time: 15:53 Status: Acute Assessment and plan: Renal cell carcinoma with lung and bone mets, Likely weeks to months meets hospice criteria Continue steroid burst. He feels great. Awaiting hospice consult Pain for LLE nucynta and robaxin doing well with this from previous CVA left sided hemiparesis (2) HTN (hypertension): Start date: 06/29/20 Start time: 15:54 Status: Chronic Assessment and plan: Stable (3) Renal cell adenocarcinoma: Start date: 06/29/20 Start time: 15:54 Status: Acute Assessment and plan: s/p first round of immunotherapy suppression which is making him sick, as above (4) Bone metastases: Start date: 06/29/20 Start time: 15:55 Status: Acute Assessment and plan: Hospice consult above case discussed with Dr. Ramirez Subjective Subjective Patient reports: feels better Interval history since last seen: Jorden is feeling good today, likely from the steroid burst. He is awaiting hospice to decide course of events for dispo. Otherwise only complaint is cramping and pain to LLE from previous CVA in which nucynta and robaxin have seem to be helpful. He denies CP, SOB N/V/D. Exam Narrative Exam Narrative: General: Appears older than stated age, skin pale but color appears better today well nourished. He is alert and oriented, appears like he feels better HEENT: Normocephalic, atraumatic. Neck: Supple. Cardiovascular: Heart has regular rate and rhythm, no murmur appreciated, nontachycardic. Respiratory: Respirations appear even and unlabored at rest, lung sounds clear to auscultation throughout. GI: Large, round abdomen, normal active bowel sounds, nontender on palpation, nondistended. Extremities: No significant edema to BLEs. Gait not assessed. Left ankle with brace. Left hemiparesis. Skin, rash is gone under panus, skin is improved. Objective Last Vital Signs Temp 36.3 C L 06/29/20 08:00 Pulse 63 06/29/20 08:00 Resp 18 06/29/20 08:00 BP 118/67 06/29/20 08:00 Pulse Ox 91 L 06/29/20 08:00
--- NOTE | 2020-06-29 16:36 | PT.INTREAT ---
Date of service: 06/29/20 Time of Service: 10:50 PT Notes Visit Reasons: AMBULATORY DYSFUNCTION Inpatient Physical Therapy Treatment Note [facility] Date: 06/29/2020 PRECAUTIONS: Activity as tolerated SUBJECTIVE: Jorden is pleasant, although reports that he received news that he does not have much longer to live. He states that he has been attempting to preoccupy himself with getting his affairs in order, which makes him feel more comfortable with his situation. He indicates that he is to have a Palliative care meeting tonight to determine next steps. He would like to participate in PT, although minimally, as he feels he will hurt himself and push himself beyond what his body is capable of at this point. OBJECTIVE: PAIN: Patient c/o tight pain in left low back area BED MOBILITY/TRANSFERS Rolling L/R: I GAIT: Not assessed THEREX: Patient was instructed in a LE and UE strengthening program, performed in a supine position, as per flow sheet. He requires assist for L UE exercise completion due to paralysis. ASSESSMENT: Patient tolerated session well without complaint. If patient chooses to continue with therapy interventions, he would benefit from continued global strengthening, and transfer and gait training. PLAN: Continue with global strengthening, when appropriate. TREATMENT CODE/TIME: 20 minutes; 96606 (10:50)
--- NOTE | 2020-06-29 17:19 | W.PALLCONSUL ---
Date of service: 06/29/20 Time of Service: 17:20 History of Present Illness History of Present Illness Chief Complaint: renal cell ca w mets Narrative: From H and P; History of Present Illness History of Present Illness Chief Complaint: Weakness of Lower Extremity Narrative: This is a 65 yo male with a PMH of renal cell carcinoma with bony mets, s/p radiation tx and initial chemotx 1 1/2 weeks ago, hemorrhagic CVA with left sided deficits, HLD, HTN, hypothyroidism. He is a palliative care patient. He presented to the ED with LLE weakness. On the AM of admission he had gone to the bathroom and when returning to his bedroom his left leg would not lift up. He went into a squating position then let himself down to the floor. He was on the floor for several hours until a caregiver arrived. He endorses some chronic weakness in the LLE s/p his CVA but it had become gradually more weak over the several days prior to arrival. His right hip was hurting upon arrival. No CM. He has had no fever/chills, syncope, vertigo, N/V/abd pain/diarrhea. EKG showed sinus tachycardia. Xray of right hip/pelvis/femur negative for fx/dislocation. CT head w/o acute findings. MRI brain w/o acute findings. Lab unremarkable. Interim hx: Jorden is usually a patient of Adilia Brown. This is her day off. I am seeing Jorden at the request of Dr. Ramirez. She feels that at this point Jorden would benefit from being on hospice. There is a hospice consult in process. It has not yet happened. Jorden is very very happy with his care at [facility]. He cannot believe how wonderful everyone is. He would like to remain at [facility] as long as possible. He is very skittish about going home because of a recent near fall. He knows he should probably go to a facility for care. He is still hoping to go home. He states that the steroids really helped his right hip pain. He was amazed at how much things hurt and how within 24 hours they were better. Consults Consult date: 06/29/20 Requesting physician: Stephanie Ramirez Assessment and Plan Assessment and plan (1) Renal cell adenocarcinoma: Status: Acute (2) Weakness: Status: Acute (3) Acute pain of right hip: Status: Acute (4) Palliative care patient: Status: Acute Assessment and plan: Ivet,interesting 65 year old who unfortunately has widespread metastatic renal cell cancer. At this point he is concerned about returning home due to a near fall recently. He is hoping to go to a facility to get stronger and possibly go home. He has a hospice consult planned. He would like to go home on hospice but understands he doesn't have someone to stay with him. He has his affairs in order except for his household items to assign to family members. He is tidying up this matter. He feels ready to but doesn't have a timeline as to how long he has left Care MAnagement is persueing placement. He thinks he will opt for hospice. Thank you very much for this consult with this ivet man. He has many wonderful tales to tell about growing [place] from [facility]. He is normally a Palliative patient of Adilia Tesfaye who will be available tomorrow. Review of Systems Narrative: No fever, cough, SOB, headache, loss of taste or smell, runny nose,nausea and vomiting or diarrhea. He cannot use his left side much. His pain is better. [facility] Medical History Adenomatous colon polyp BPH (benign prostatic hyperplasia) Cancer related pain Colon polyps DNI (do not intubate) DNR (do not resuscitate) Foot drop, left wears brace on (L) Hemorrhagic stroke occured 07/16/09 HLD (hyperlipidemia) HTN (hypertension) Hypothyroid Kidney malignancy Palliative care patient POLST (Physician Orders for Life-Sustaining Treatment) Urinary urgency Surgical History History of colonoscopy Social History Smoking/Tobacco Use Status: Never Smoking risk assessment performed?: Yes Alcohol Intake: current Alcohol Intake frequency: a few times a week Alcohol type: beer Drug use: Never Substance use type: does not use Household members: none Do you feel safe at home: Yes Do you feel safe in your relationship?: Yes Exam Narrative Exam Narrative: Laboratory Tests 06/28/20 06/28/20 06:55 06:55 Hct 30.[address] C/A/P Exam(s) a CT:CT chest/abd/pel w EXAM: CT CHEST/ABD/PEL W CLINICAL HISTORY: bloody sputum, mets. TECHNIQUE: Imaging Protocol: Axial computed tomography images with coronal and sagittal reformatted images were created and reviewed CONTRAST MATERIAL: Intravenous: Omnipaque 350 Contrast volume:100 ml Oral: None COMPARISON: CT CT LUMBAR SPINE RECONS from 02/14/2020 FINDINGS: CHEST: LUNGS: There are multiple metastatic lesions throughout both lung garcia and there is also a large pleural base mass in the right lateral pleura extending from anterior to posterior which corresponds to the finding on chest x-ray and consistent with neoplastic tissue with invasion of the chest wall but no overlying rib destruction.. Small amount of right-sided pleural pleural effusion noted and even lesser amount of left pleural effusion. MEDIASTINUM: There is bilateral hilar as well as mediastinal adenopathy. Visualized thyroid unremarkable. CARDIAC: Heart size is normal. There is no pericardial effusion.Caliber of the thoracic aorta is within normal limits. OSSEOUS: Rods are and seen from T9 through L2 vertebral bodies. There is almost complete lytic destruction of the entire T12 vertebral body including the pedicles and laminae.. ABDOMEN: There is no ascites. LIVER: There are no focal hepatic lesions nor dilatation of intrahepatic ducts. GALLBLADDER/BILIARY: No obvious gallbladder pathology. CBD is not dilated. PANCREAS: No evidence of pancreatic mass nor dilatation of the pancreatic duct. SPLEEN: Spleen is not enlarged. There are no intrasplenic lesions. Splenic and portal veins are patent. ADRENALS: Right adrenal gland is unremarkable. KIDNEYS: There is a large malignant mass in the superior pole of the left kidney which measures approximately 9 in by a by 11 centimetres and invades the left adrenal gland.. Left renal vein is patent. No significant focal findings in the opposite-right kidney the exception of a few small cortical cysts. ABDOMINAL AORTA: Calcified but not enlarged. Few slightly prominent left para-aortic lymph nodes are noted. No adenopathy around the aortic bifurcation nor along the iliac chains and there is no inguinal adenopathy. ABDOMINAL WALL/GI: No evidence of significant anterior abdominal wall hernia. No bowel obstruction. PELVIS: LYMPH NODES: There is no intrapelvic nor inguinal adenopathy. GI: No evidence of appendicitis.No evidence of sigmoid diverticulitis. URINARY BLADDER: Slight wall thickening posteriorly. REPRODUCTIVE: Prostate size upper normal. Vas deferens calcification bilaterally OSSEOUS: There is a large lytic lesion in the right hip involving the femoral head and neck and intertrochanteric region. There is dehiscence of the posterior cortex of the femoral neck. IMPRESSION: 1. There is extensive metastatic disease involving both lungs as well as the pleural spaces and there is both hilar nor mediastinal adenopathy. There is a large pleural-based mass over the lateral aspect of the right lung which accounts for the finding on the chest x-ray and is consistent with metastatic disease with invasion of the chest wall but not the overlying right ribs. There are small bilateral pleural effusions. 2. There is a very large left kidney primary malignancy with adjacent retroperitoneal metastatic disease involving the surrounding tissues including the left adrenal gland. There is no tumor thrombus seen in the left renal vein. The opposite-right kidney is relatively unremarkable. 3. There is almost complete lytic pathologic involvement of the T12 vertebral body. There appears to be involvement of the spinal canal at this level. There are supporting rods and intrapedicular screws above and below this level. 4. There is osseous metastatic involvement of the right femoral head and neck, including dehiscence of the posterior cortex at this level. Const General: cooperative and no acute distress Nutritional Appearance: overweight Orientation: oriented x3 Resp Effort & Inspection: normal respiratory effort and able to speak in complete sentences Cardio Jugular venous pressure: no JVD Psych Speech and Movement: speech clear and slowed movement Affect: normal affect Attitude: cooperative Thought Process: normal Thought Content: normal Insight: insight good Judgment: judgment good Results Last Vital Signs Temp 97.3 F L 06/29/20 08:00 Pulse 63 06/29/20 08:00 Resp 18 06/29/20 08:00 BP 118/67 06/29/20 08:00 Pulse Ox 91 L 06/29/20 08:00 Labs Result diagrams: 06/28/20 06:55 06/28/20 06:55
--- NOTE | 2020-06-29 18:13 | CMPROGNOTE_ITS ---
- If Service Date Differs Date of service: 06/29/20 Time of Service: 18:13 Care Management Progress Note S/O: Jorden was lying in bed when KIRAN met with her. He reported that he was doing ok, and was busy this weekend making final arrangements for himself. He stated that he has all of the 'big things' arranged, and is now worrying about the small items. He does not know where he will be cared for in his final weeks/months. He reported that there would be a palliative meeting with Adilia today to discuss Hospice. Adilia was not available today, KIRAN will coordinate a visit with her later in the week. KIRAN will call [facility], for the consult to happen tomorrow. Jorden does not want to be a burden on his family, and reported that his wish would be to remain at [facility] for the end of his life. KIRAN explained that he would not be able to stay in an acute bed for a prolonged amount of time. CM will look into options such as Surrogate Son or other private pay options for Jorden. He does not prefer to go to a facility, and may have funds for private care. KIRAN coordinated a visit with [place], his PCP today, via [employer]. Jorden stated that he has an appointment with the director of recruitment tomorrow after 3pm. CM will assist with this virtual visit. KIRAN will continue to follow. A: Jorden is a 65 year old man admitted on 06/26/20 with ambulatory dysfunction P:Jorden will remain at [facility] until medically cleared. He has worked with PT/OT during this admission to progress toward his goals of increased strength and independence, however his new prognosis may change that plan. He will either return home vs SNF, likely on hospice. He will follow up with his PCP and discharge plan of care. CM will continue to support Jorden and his family and assess for discharge planning and end of life considerations.
[2020-06-29] MEDS: Nystatin OINT 15 GM TUBE TP (20:46)
[2020-06-29] MEDS: Acetaminophen 325 MG TAB 650 MG PO (21:52)
[2020-06-29] MEDS: Melatonin 3 MG TAB PO (21:52)
[2020-06-29] MEDS: Doxazosin 2 MG TAB 8 MG PO (21:52)
[2020-06-29] MEDS: Simvastatin 20 MG TAB PO (21:53)
[2020-06-29 23:40] VITALS: BP 108/65; PULSE 58; RESP 17; TEMP 36.3; O2SAT 96
[2020-06-30] MEDS: Levothyroxine 100 MCG TAB PO (05:47)
--- NOTE | 2020-06-30 07:15 | OTTR_ITS ---
Date of service: 06/30/20 Time of Service: 07:15 Occupational Therapy Notes Occupational Therapy Inpatient Treatment Note Date: 06/30/20 PRECAUTIONS: fall, standard, DNR/DNI SUBJECTIVE: Pt was lying in bed he has notable discomfort in his back and states that he is unable to get comfortable. OBJECTIVE: PAIN:c/o discomfort in pts back BATHING: seated in bed min vc throughout Upper Body: (I) (L) UE and mod (A) (R) UE, (I) abdomen Lower Body: (I) with ana luisa area but does require (A) for proper ana luisa area care DRESSING: seated in bed, min vc throughout Upper Extremity: Min (A) don and doffing hospital gown Lower Extremity: max (A) don and doffing socks GROOMING: Min (A) combing hair seated in bed TOILETING: Device: urinal Assist: (I) ASSESSMENT/PLAN: Goal is to continue to work with pt to maintain his functional (I) in regards to both his pain and discomfort as well as his comfort level with services. TREATMENT CODES/TIME: [id number], 35 minutes (07:15) Amy Hou, OTR/L [facility]
[2020-06-30 07:40] VITALS: BP 129/70; PULSE 60; RESP 21; TEMP 36.2; O2SAT 94
[2020-06-30] MEDS: predniSONE 20 MG TAB 60 MG PO (08:18)
[2020-06-30] MEDS: dilTIAZem CD 120 MG CAPCR 240 MG PO (08:18)
[2020-06-30] MEDS: Potassium Chloride 20 MEQ TABCR PO (08:19)
[2020-06-30] MEDS: Normal Saline Flush 10 ML SYR IVP (08:19)
[2020-06-30] MEDS: hydroCHLOROthiazide 25 MG TAB PO (08:19)
[2020-06-30] MEDS: Docusate Sodium 100 MG CAP PO ×2 (08:19→19:49)
[2020-06-30] MEDS: Methocarbamol 750 MG TAB PO (08:19)
[2020-06-30] MEDS: Lisinopril 10 MG TAB PO (08:19)
[2020-06-30] MEDS: Pantoprazole 40 MG TABCR PO (08:19)
[2020-06-30] MEDS: Nystatin OINT 15 GM TUBE TP ×2 (08:20→19:49)
--- NOTE | 2020-06-30 11:45 | CHAPLAIN ---
Jorden was resting in bed when I visited. He said that we had met over 10 years ago when his uncle was a hospice patient here. He told me about his cancer spreading, and his difficulty walking now. He was unable to lift his leg the other day, when returning from the bathroom to his bedroom. Jorden lives alone and he said he knows he can't live alone any longer. He is working with Care Management to figure out the next steps. He met with Dr. Perea, from Palliative Care, yesterday, and was meeting with Kenzie from Hospice this morning. Jorden said his biggest worry right now is about being in pain and not being able to communicate with people. He said he had a friend who had cancer and was worried that every breath would be his last. I don't want to be like that, Jorden told me. He has siblings that live in the area and he is in touch with them. (Their grandfather's farmland was across the street from [facility].) One sister has been very helpful with paperwork, another tells Jorden that he should just get up and move more and walk it off. Jorden is Rastafari, but has not been attending moravian recently. His friend, Fr. Larry Amador, a former supervisor carton and can supply in [facility] [place], now in [place], visited Jorden at home recently and offered him anointing of the sick.
--- NOTE | 2020-06-30 12:42 | PT.INTREAT ---
Date of service: 06/30/20 Time of Service: 10:50 PT Notes Visit Reasons: AMBULATORY DYSFUNCTION Inpatient Physical Therapy Treatment Note [facility] Date: 06/30/2020 PRECAUTIONS: Activity as tolerated SUBJECTIVE: Jorden is pleasant, he reports that he will have another Palliative follow up today, regarding next steps in his care. He would like to participate in PT, although minimally, as he feels he will hurt himself and push himself beyond what his body is capable of at this point. OBJECTIVE: PAIN: Patient c/o tight pain in left low back area BED MOBILITY/TRANSFERS Rolling L/R: I GAIT: Not assessed THEREX: Patient was instructed in a LE and UE strengthening program, performed in a supine position, as per flow sheet. He requires assist for L UE exercise completion due to paralysis. ASSESSMENT: Patient tolerated session well without complaint. If patient chooses to continue with therapy interventions, he would benefit from continued global strengthening, and transfer and gait training. PLAN: Continue with global strengthening, when appropriate. TREATMENT CODE/TIME: 15 minutes; 20650 (09:55)
[2020-06-30 15:14] VITALS: BP 113/64; PULSE 69; RESP 17; TEMP 36.5; O2SAT 93
--- NOTE | 2020-06-30 17:08 | CMPROGNOTE_ITS ---
- If Service Date Differs Date of service: 06/30/20 Time of Service: 17:09 Care Management Progress Note S/O: Jorden was sitting up in bed when CM met with him. CM coordinated a meeting with [facility] today, which happened this morning. CM called his sister, Praveena, to set up a zoom meeting with Jorden and the director medical economics, to finalize plans for his . Praveena was on the phone during the Hospice meeting, and discussed it with CM on the phone as well. Praveena doesn't feel that the family will be able to be home with him 31/10 at this time, but they are discussing it. Jorden stated that he does not want to be a burden to his family, and especially doesn't want them to provide personal care. CM discussed options such as SNF, home with additional care, and Surrogate Son. He doesn't believe that he would be able to afford additional care, or surrogate son (for a prolonged period of time). He stated that he would prefer to remain at [facility], but understands that this is not an option, as there is not a senior care program offered at [facility]. Therefore, he has stated that he is agreeable to SNF, and would like a referral sent to [facility], due to its proximity to family. CM sent referral to admissions at [facility] for consideration. Jorden stated that he can only make one decision at a time, and would like to discuss his placement tomorrow. CM will continue to follow. A: Jorden is a 65 year old man admitted on 06/26/20 with ambulatory dysfunction P:Jorden will remain at [facility] until medically cleared. He has worked with PT/OT during this admission to progress toward his goals of increased strength and independence, however his new prognosis may change that plan. He will either return home vs SNF, likely on hospice. He will follow up with his PCP and discharge plan of care. CM will continue to support Jorden and his family and assess for discharge planning and end of life considerations.
--- NOTE | 2020-06-30 18:41 | W.PM.PROGNOT ---
Date of Service Date of service: 06/30/20 Time of Service: 18:41 Assessment and Plan Assessment and plan (1) Renal cell adenocarcinoma: Status: Acute Assessment and plan: Patient is trying to formulate his dying care plan. It appears that this is going to be him going to a SNF. (2) Ambulatory dysfunction: Status: Acute Assessment and plan: In setting of residual deficits from CVA in addition to cord compression and leg weakness from that. At this point, the patient is not anticipated to become independent and will need SNF level of care (3) Weakness: Status: Acute Assessment and plan: As above (4) Acute pain of right hip: Status: Acute Assessment and plan: Continue prednisone, tapentadol (5) Rhabdomyolysis: Status: Resolved Assessment and plan: D/c statin. (6) Cancer related pain: Status: Acute Assessment and plan: Continue above pain management (7) DVT prophylaxis: Status: Acute Assessment and plan: not congruent with patient's goals of care (8) Discharge planning issues: Status: Acute Assessment and plan: DNR/DNI Possible discharge to [facility] tomorrow if bed available Subjective Subjective Interval history since last seen: Mr Pete states he is feeling really good today. The last 3 days have been good. Pain is controlled. Denies dizziness, chest pain, shortness of breath, nausea. Awaiting disposition decision - patient is still discussing it with palliative care and care management. He plans on going to a SNF level of care. Exam Narrative Exam Narrative: General: Obese male with L facial droop, LUE/LLE weakness, in a great mood HEENT: EOMI, MMM, L facial droop Heart: RRR, no m/r/g Lungs: CTAB Abdomen: soft, nontender, nondistended Extremities: no edema BLEs Objective Last Vital Signs Temp 36.5 C 06/30/20 15:14 Pulse 69 06/30/20 15:14 Resp 17 06/30/20 15:14 BP 113/64 06/30/20 15:14 Pulse Ox 93 06/30/20 15:14
[2020-06-30] MEDS: Doxazosin 2 MG TAB 8 MG PO (21:36)
[2020-06-30 23:25] VITALS: BP 125/72; PULSE 60; RESP 18; TEMP 36; O2SAT 92
[2020-07-01] MEDS: Levothyroxine 100 MCG TAB PO (05:44)
[2020-07-01 07:17] VITALS: BP 127/76; PULSE 58; RESP 18; TEMP 35.8; O2SAT 93
[2020-07-01] MEDS: Polyethylene Glycol 3350 17 GM PACKET PO (08:52)
[2020-07-01] MEDS: hydroCHLOROthiazide 25 MG TAB PO (08:53)
[2020-07-01] MEDS: Docusate Sodium 100 MG CAP PO (08:53)
[2020-07-01] MEDS: Pantoprazole 40 MG TABCR PO (08:54)
[2020-07-01] MEDS: dilTIAZem CD 120 MG CAPCR 240 MG PO (08:54)
[2020-07-01] MEDS: predniSONE 20 MG TAB 60 MG PO (08:54)
[2020-07-01] MEDS: Lisinopril 10 MG TAB PO (08:55)
[2020-07-01] MEDS: Potassium Chloride 20 MEQ TABCR PO (08:55)
[2020-07-01] MEDS: Nystatin OINT 15 GM TUBE TP (08:56)
--- NOTE | 2020-07-01 09:59 | OT.INTREAT ---
Date of service: 07/01/20 Time of Service: 07:45 Occupational Therapy Notes Occupational Therapy Inpatient Treatment Note Date: 07/01/20 PRECAUTIONS: fall, standard, DNR/DNI SUBJECTIVE: Pt was lying in bed and states that he is uncomfortable but would not classify it as pain. He does not specify an area that bothers him more than others. OBJECTIVE: PAIN:c/o discomfort in pts body as a while BATHING: seated in bed max (A) Set up/clean up min vc throughout Upper Body: (I) (L) UE and min (A) (R) UE, (I) abdomen Lower Body: Max )(A) (B) LE DRESSING: seated in bed, min vc throughout Upper Extremity: Min (A) [facility] gown Lower Extremity: NT GROOMING: Min (A) combing hair seated in bed TOILETING: Device: urinal Assist: (I) ASSESSMENT/PLAN: Goal is to continue to work with pt to maintain his functional (I) in regards to both his pain and discomfort as well as his comfort level with services. Plan is that pt may transition to SNF in the next couple days. TREATMENT CODES/TIME: 75683, 20 minutes (07:45) Amy Hou, OTR/[facility]
--- NOTE | 2020-07-01 11:13 | CMDISCH_ITS ---
- If Service Date Differs Date of service: 07/01/20 Time of Service: 11:13 LACE Index Scoring Tool - Questions: Length of Stay (in days): 4 - 6 Acuity (Admit via E.D.?): Yes Comorbidities: Liver or Renal Disease, Metastatic Solid Tumor E.D. Visits: 2 - Answers: Total Score: 14 Risk of Readmission: High Risk Care Management Discharge Reason for Hospitalization: Ambulatory Dysfunction. Discharge Plan: Jorden will transition to [facility] today via [facility], coordinated by KIRAN. CM contacted Palliative care to ask for out patient follow up at the facility. CM called his sister, Praveena, to inform her of this plan. Jorden will follow up with Palliative care and his discharge plan of care. He is agreeable to this plan. Patient/Family Education Needs: Review discharge instructions and expectations surrounding rehab and end of life care, discussion of self care and goals of care. Services Needed at Discharge: [facility] Facility ([facility]), Transportation ([facility])
--- NOTE | 2020-07-01 11:21 | W.PM.DS.N ---
Date of service: 07/01/20 Time of Service: 11:28 DS: Diagnosis Discharge Diagnosis (1) Renal cell adenocarcinoma: Status: Acute (2) Hemoptysis: Status: Resolved (3) Ambulatory dysfunction: Status: Acute (4) Weakness: Status: Acute (5) Acute pain of right hip: Status: Acute (6) Rhabdomyolysis: Status: Resolved (7) Cancer related pain: Status: Acute (8) COVID-19 ruled out by laboratory testing: Status: Ruled-out Discharge Plan Disposition Patient Disposition: SNF (LEVEL 1) [facility] Condition: Stable Discharge Details Reason For Visit: AMBULATORY DYSFUNCTION Admit Date/Time: 06/26/20 14:15 Admit Provider: Reji Burger Attending Provider: Rjei Burger Primary Care Provider: [facility] Hospital Course Hospital Course: Mr Pete is a 65 year old male with PMHx of metastatic renal cell carcinoma with lung and bony mets, including spinal cord involvement surgically decompressed in March of 2020, s/p XRT and on palliative immunotherapy, as well as h/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 An acute CVA was ruled out. Rhabdomyolysis was treated with IVF. Statins were stopped, though it was likely the fall that caused rhabdomyolysis. At the same time, the patient reported scant hemoptysis. This warranted further imaging of his chest which demonstrated extensive metastatic disease. Metastatic lesions were also found diffusely in his bones, including right femoral head and neck where he experiences pain. Concurrently he is being treated with a steroid burst for cancer-related pain. The patient met with palliative care on this admission and is no longer interested in continuing treatment for his cancer. His pain is currently well managed with prednisone 60 mg (last dose tomorrow, 07/02/2020) and prn tapentadol. He is not safe to return home as he lives alone and requires assistance with his ADLs. A henning catheter was inserted for comfort. Bowel management has been a priority and the patient is being discharged with a bowel regimen. The patient should follow up with palliative care at [facility]. Care for patient as well as completion of his discharge summary on day of discharge took 45 minutes. Home Meds and New Rx's Prescriptions: New prednisone 20 mg Tablet 60 mg PO DIRECTED Qty: 0 RF: 0 methocarbamol 750 mg Tablet 750 mg PO QID PRN PRNQty: 0 RF: 0 docusate sodium [Colace] 100 mg Capsule 100 mg PO BID Qty: 0 RF: 0 Nucynta 50 mg Tablet 50 mg PO Q4H PRN PRNQty: 30 RF: 0 polyethylene glycol 3350 17 gram Powder In Packet 17 g PO DAILY PRN PRN (Reason: Constipation) Qty: 0 RF: 0 zinc oxide 20 % Ointment 1 applic topical TID Qty: 28 RF: 0 pantoprazole 40 mg Tablet,Delayed Release (Dr/Ec) 40 mg PO DAILY@0730 Qty: 0 RF: 0 clotrimazole 1 % Cream 1 applic topical TID Qty: 14 RF: 0 vits A and D-white pet-lanolin Ointment 1 applic topical TID Qty: 15 RF: 0 nystatin 100,000 unit/gram Ointment 1 applic topical BID Qty: 15 RF: 0 Continued hydrochlorothiazide 25 mg tablet 25 mg PO DAILY RF: 0 melatonin 3 mg capsule 3 mg PO HS PRNRF: 0 sennosides [senna] 8.6 mg tablet 17.2 mg PO BID PRNRF: 0 baclofen 10 mg tablet 10 mg PO QHS PRNRF: 0 levothyroxine 100 mcg capsule 100 mcg PO DAILY RF: 0 multivitamin Capsule 1 cap PO DAILY RF: 0 acetaminophen 500 mg tablet 1,000 mg PO Q6H PRNRF: 0 diltiazem HCl 240 mg capsule,extended release 24hr 240 mg PO DAILY RF: 0 lisinopril 10 mg tablet 10 mg PO DAILY RF: 0 doxazosin 4 mg tablet 4 mg PO HS RF: 0 potassium chloride 20 mEq tablet,ER particles/crystals 20 meq PO DAILY RF: 0 Discontinued simvastatin 20 MG tablet 20 mg PO DAILY RF: 0 Discharge Instructions Instructions: Prednisone (By mouth), Tapentadol (By mouth), Rhabdomyolysis (DC) Stand Alone Forms: Nursing Discharge Form Activity:: Activity as Tolerated Equipment/Supplies:: No Equipment Needed Diet:: heart healthy Discharge Orders Discharge Orders: Discharge Order (Routine); Ordered 07/01/20 Ordered By: Stephanie Ramirez DS: Summary Time Spent with Patient providing and/or coordinating discharge services: Greater than 30 minutes Status at Discharge Functional status at discharge: bed bound Overall status at discharge: patient is not back to baseline Mental Status: mental status grossly normal Speech and Movement: speech and movement normal Mood: congruent mood Affect: normal affect Exam Narrative Exam Narrative: General: Obese male with L facial droop, LUE/LLE weakness, in a great mood HEENT: EOMI, MMM, L facial droop Heart: RRR, no m/r/g Lungs: CTAB Abdomen: soft, nontender, nondistended Extremities: no edema BLEs Psych Mental Status: mental status grossly normal Speech and Movement: speech and movement normal Mood: congruent mood Affect: normal affect DS: Data Vitals/I&O Vitals and I&O: Vital Signs Temperature 35.8 C L 07/01/20 07:17 Temperature Source Tympanic 07/01/20 07:17 Pulse 58 L 07/01/20 07:17 Pulse Rhythm Regular 07/01/20 07:20 Pulse 87 06/25/20 13:10 Respiratory Rate 18 07/01/20 07:17 Respiratory Effort Non-Labored 07/01/20 07:20 Respiratory Depth Normal 07/01/20 07:20 Respiratory Pattern Normal 07/01/20 07:20 Blood Pressure 127/76 07/01/20 07:17 Blood Pressure Mean 65 06/25/20 13:01 Pulse Oximetry 93 07/01/20 07:17 Oxygen Delivery Method Room Air 07/01/20 07:17 Oxygen Flow Rate 0 07/01/20 07:17 Pain Level 0 07/01/20 07:17 Intake & Output 06/30/20 06/30/20 07/01/20 11:59 23:59 11:59 Intake Total 125 / 605 480 / 605 365 / 365 Output Total 550 / 1500 950 / 1500 925 / 925 Balance -425 / -895 -470 / -895 -560 / -560 Weight 104.4 kg 103.1 kg Intake: IV 5 / 5 5 / 5 Oral 120 / 600 480 / 600 360 / 360 Output: Urine 550 / 1500 950 / 1500 925 / 925 Other: Urine Color Yellow Straw Straw Urine Appearance Cloudy Clear Clear Urine Odor Normal Foul Normal Comment Was not able to check the bed to see if it is wet, Pt said no thank you to moving a little bit so that [employer] could check Voiding Methods Urinal Urinal Urinal Data Completed and Pending Completed studies during hospitalization [Text1]: CT chest/abdomen/pelvis; 1. There is extensive metastatic disease involving both lungs as well as the pleural spaces and there is both hilar nor mediastinal adenopathy. There is a large pleural-based mass over the lateral aspect of the right lung which accounts for the finding on the chest x-ray and is consistent with metastatic disease with invasion of the chest wall but not the overlying right ribs. There are small bilateral pleural effusions. 2. There is a very large left kidney primary malignancy with adjacent retroperitoneal metastatic disease involving the surrounding tissues including the left adrenal gland. There is no tumor thrombus seen in the left renal vein. The opposite-right kidney is relatively unremarkable. 3. There is almost complete lytic pathologic involvement of the T12 vertebral body. There appears to be involvement of the spinal canal at this level. There are supporting rods and intrapedicular screws above and below this level. 4. There is osseous metastatic involvement of the right femoral head and neck, including dehiscence of the posterior cortex at this level. CXR: Bilateral infiltrates. Pleural based mass right lateral hemithorax, either neoplastic or loculated pleural effusion. This finding was not evident on chest x-ray 03/13/2020.Recommend follow-up CT scan. Neck MRA: Limited noninfused study. No occlusion of the carotid arteries in the neck. Left vertebral artery is dominant. Brain MRA: 1. Patent intracerebral arteries as described above. 2. No aneurysm is evident. 3. The left vertebral artery is dominant. See separate neck MRA study Brain MRI: 1. There is ex vacuo dilatation of the right lateral ventricle, this related to chronic sequelae from the large adjacent hemorrhage which was evident on the 2010 CT scan. 2. There is a strip of signal abnormality in the right claustrum just medial to the sylvian fissure which measures 4 cm AP by 0.7 cm wide. Central aspect of this exhibits CSF signal intensity consistent with chronic changes. This is sequelae of the prominent hemorrhage in this region which was evident in 2009. The peripheral aspect of this is hypointense on T2 sequence and consistent with blood products, probably hemosiderin. 3. Chronic white matter periventricular ischemic findings. CT head: Asymmetric enlargement of the right lateral ventricle, this being sequelae from the large intra-axial hemorrhage which was evident in 2009. No evidence of intracranial hemorrhage at this time. Chronic ischemic change outer capsule-external capsule right-side. Chronic white matter changes. Vascular calcification at the skull base as described above If clinically indicated follow-up MRI can be performed. XR pelvis : No evidence of pelvic nor hip fracture. Calcification is noted in the vas deferens bilaterally. No osseous lesions. XR R femur: There is no evidence of right femur fracture. Advanced degenerative changes in the right knee noted. No obvious hip fracture. XR lumbar spine: Lytic lesion of L1 and mild L1 compression fracture. No evidence of acute fracture. Spinal rods are intact. Labs on day of discharge: Labs from last 24 hours 07/01/20 10:55 COVID-19 Source Pending SARS-CoV-2 (PCR) Pending [facility] Medical History Adenomatous colon polyp BPH (benign prostatic hyperplasia) Cancer related pain Colon polyps DNI (do not intubate) DNR (do not resuscitate) Foot drop, left wears brace on (L) Hemorrhagic stroke occured 07/16/09 HLD (hyperlipidemia) HTN (hypertension) Hypothyroid Kidney malignancy Palliative care patient POLST (Physician Orders for Life-Sustaining Treatment) Urinary urgency Surgical History History of colonoscopy Social History Smoking/Tobacco Use Status: Never Smoking risk assessment performed?: Yes Alcohol Intake: current Alcohol Intake frequency: a few times a week Alcohol type: beer Drug use: Never Substance use type: does not use Household members: none Do you feel safe at home: Yes Do you feel safe in your relationship?: Yes
[2020-07-01 12:25] LABS: COVID-19 PCR Negative (Negative)
--- NOTE | 2020-07-01 14:57 | CHAPLAIN ---
I visited with Jorden shortly before he was being [facility]. He said this wasn't his first choice of placement, but he had limited options. He has been there before and is hopeful that his sister, who has had both vaccines, will be able to visit him soon. Jorden is the eldest of five siblings, all of whom who live locally.
--- NOTE | 2020-07-01 17:30 | PT.INDS ---
Date of service: 07/01/20 PT Notes Visit Reasons: AMBULATORY DYSFUNCTION Physical Therapy Inpatient Discharge Summary Date: 07/01/2020 Dates of Service: 06/26/2020 through 06/30/2020 This is a clinical summary of care provided on the duration of dates listed above. No charge was made in the completion of this documentation. Referring Doctor: Reji Burger MD PT Orders: PT CONSULT: Eval/treat. Precautions: Fall. Standard. Fearful of falling. Activity as tolerated. 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 X-ray of the hip is negative for fracture and dislocation. CT scan of the brain is negative for any acute process. MRI of the brain is also negative for acute process. 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 Independent with all indoor ambulation using his SPC. 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 Equipment Owned/DME: L AFO Subjective: NT. See most recent ROUTING MACHINE OPERATOR notes. Objective: General Observation: NT. See most recent ROUTING MACHINE OPERATOR notes. Mental Status: NT. See most recent ROUTING MACHINE OPERATOR notes. Pain: NT. See most recent ROUTING MACHINE OPERATOR notes. ROM: Right Upper Extremity: Shoulder Flexion WFL. Shoulder abduction WFL. Elbow flexion WFL. Wrist flexion WFL. Opening and closing of hand WFL. Left Upper Extremity: Shoulder Flexion allows up to 30 degrees. Shoulder abduction allows up to 40 degrees L. Elbow flexion WFL. Wrist flexion WFL. Opening and closing of hand absent. Right Lower Extremity: Hip flexion WFL. Hip abduction WFL. Knee flexion WFL. Ankle dorsiflexion WFL. Ankle plantarflexion WFL. Left Lower Extremity: Hip flexion unable to bend any further while seated at edge of bed. Hip abduction allows up to 10 degrees. Knee flexion allows up to 90 degrees. Ankle dorsiflexion absent. Ankle plantarflexion absent due to presence of AFO. Strength: Right Upper Extremity: Shoulder flexors 4/5. Shoulder abductors 5/5. Elbow flexors 5/5. Elbow extensors 5/5. Microbiology Laboratory Manager strong. Left Upper Extremity: Shoulder flexors 3-/5. Shoulder abductors 3-/5. Elbow flexors 3-/5. Elbow extensors 3-/5. Microbiology Laboratory Manager absent. Right Lower Extremity: Hip flexors 4/5. Hip abductors 4/5. Knee flexors 4/5. Knee extensors 4-/5. Ankle dorsiflexors 4-/5. Ankle plantarflexors 4-/5. Left Lower Extremity: Hip flexors 3-/5. Hip abductors 3-/5. Knee flexors 3-/5. Knee extensors 3-5. Ankle dorsiflexors 1/5. Ankle plantarflexors 2-/5. Sensation: Intact as to pain and pressure on bilateral lower extremities. Bed Mobility/Transfers: Rolling contact-guard assist Supine to sit moderate assist with HOB at 45 degrees Sit to stand minimal assist of 2 Stand to sit contact-guard assist Bed to chair minimal assist of 2 Gait: Significantly limited to just transfers only due to high anxiety over falling. Moderate assist of 2 for safety. Moderate to maximal verbal cueing for safe technique. Balance: Static Sitting: Normal Dynamic Sitting: Normal Static Standing: Poor Dynamic Standing: Poor Assessment: Barriers to achieving goals for this episode of care include significant fear of falling, chemotherapy-induced weakness, loose fitting left AFO, and residual left-sided weakness all contributed to patient's anxiet. Patient requires assistance of 2 people for transfer task performance and has refused to walk any further for fear of falling. Patient continues to present with clinical signs and symptoms consistent with current/admitting diagnoses that have resulted to mobility limitations, gait instability, generalized weakness, and impairment of motor control as demonstrated by the following impairment level findings: 1. Decreased strength to left UEs/LE major muscle groups 2. Impaired standing balance 3. Impaired activity tolerance 4. Limitation of joint range of motion in left UE/LE 5. Significant fearfulness of falling Impairments are contributing to contribute to the following functional limitations: 1. Dependent bed mobility skills 2. Increased dependence with transfers 3. Inability to safely ambulate without assistive device and physical assistance 4. Increase completion time for mobility ADL performance 5. Increased fall risk 6. Inability to negotiate steps alone safely Goals: Goals X1 week 1. Supine-Sit independent NOT MET 2. Sit-Supine independent NOT MET 3. Sit-Stand contact-guard assist NOT MET 4. Stand-Sit contact-guard assist NOT MET 5. Bed-Chair contact-guard assist NOT MET 6. Chair-Bed contact-guard assist NOT MET 7. Minimal assist gait on level surface with use of least restrictive device for at least 30 feet without report of pain nor dyspnea NOT MET 8. Fair static and dynamic standing balance/tolerance NOT MET DISCHARGE RECOMMENDATIONS: Patient will benefit from home health PT services in order to progress mobility level using least restrictive assistive ambulatory device, assess home safety, identify additional equipment needs, and establish a functional maintenance program that will increase ability of patient to remain at home. TREATMENT CODE/TIME: OH Thank you for the opportunity to participate in the care of this patient. Tracey Pineda PT, DPT, CLT [facility] [place], [place]
--- NOTE | 2020-07-02 07:18 | OTDS_ITS ---
Date of service: 07/02/20 Time of Service: 07:18 Occupational Therapy Notes Occupational Therapy Inpatient Discharge Summary Date: 07/02/20 Dates of Service: 06/29/20-07/01/20 Referring Doctor:Sara Lara NP OT Orders: Non- Urgent Precautions: Standard, fall, DNR/DNI PATIENT PROFILE/ADMITTING DIAGNOSIS: Pt is a 65 year old male who is well known to this OT in the outpatient setting. He reports that his back pain over the past months was actually stage 4 kidney cancer which has spread throughout his body. He was seen at [facility] and recently returned home. He states that he went to get up to go to the bathroom, he has started chemotherapy and noticed increased weakness in his body. As he went to get up he felt weak at the knees and said he was slowly going down. He called EMS who brought him to the ED. He was admitted to Med Surg for the following palliative consult, stage 4 kidney cancer, HTN, renal cell adencarcinoma and bone metastses. Past Medical History: Medical History Adenomatous colon polyp BPH (benign prostatic hyperplasia) Cancer related pain Colon polyps DNI (do not intubate) DNR (do not resuscitate) Foot drop, left wears brace on (L) Hemorrhagic stroke occured 07/16/09 HLD (hyperlipidemia) HTN (hypertension) Hypothyroid Kidney malignancy Palliative care patient POLST (Physician Orders for Life-Sustaining Treatment) Urinary urgency Surgical History History of colonoscopy Social History/Home Situation: At baseline pts lives in a private home and was (I) with all of his ADLs/IADL and driving. He recently retired from his job at the end of last year. He has a (L) vania UE from a stroke a number of years ago. He has close family relations with a nephew who helps him as needed. His sister and brother also live locally and he is long time member of the [facility] [employer]. Equipment owned/DME: Modified handicap car, cane, hanidcap accessible home SUBJECTIVE: NT ROM: RUE AROM WFL L UE slight elbow flexion, wrist flexion and IF movement. Pt has limited AROM d/t stroke. STRENGTH: RUE 4-/5 throughout LUE Unable to test. FUNCTIONAL MOBILITY/ADLS: BATHING Sitting in bed pt is (I) with washing his face and has AROM with his (R) UE to be able to perform his (L) UE bathing, face and abdomen (I). Based on his limitations from his stroke he will require (A) with his (R) UE and (B) LE DRESSING Min (A) [facility] gown GROOMING Pt is able to brush his hair and could brush his teeth with his (R) UE but not tested at todays session but requires (A) for fine motor due to lack of AROM of his (L) TOILETING Incontinent and max (A) EATING (I) with (R) UE BALANCE: Static sitting Good Dynamic Sitting Good ASSESSMENT: Patient is a 65-year-old male referred to occupational therapy services with diagnosis of palliative consult, stage 4 kidney cancer, HTN, renal cell adencarcinoma and bone metastses. Pt was seen for 3 skilled OT sessions, his pain in his body was bothersome at times he notes that he would like to be as functionally (I) as possible at his end of life care. He was transitioned to SNF on 07/01/20. GOALS- Met, except grooming which was NT in OT sessions. 1. Grooming- with (A) set up pt will be (I) with brushing his teeth 2. Dressing- Min (A) UE 3. Bathing- (I) UE, max (A) LE PLAN OF CARE/TREATMENT PLAN: Discharge from skilled OT services, pt was transitioned to SNF on 07/01/20 DISCHARGE RECOMMENDATIONS OT recommends that pt go hospice care and continues his services/care with understanding to his comfort levels and needs. TREATMENT TIME/MINUTES/CODES N/A Amy Hou OTR/L [facility]
== END 2020-07-01 13:06 | disposition skilled nursing facility (03) | DRG 543 ==
LOC: ER 14:31 → MS 14:40
PROVIDERS: Internal Medicine; Nurse Practitioner Family; Admitting Provider Family Medicine; Emergency Provider Student in an Organized Health Care Education/Training Program; PCP Nurse Practitioner Family; Visit Provider Family Medicine
DX: C79.51 Secondary malignant neoplasm of bone (principal); M62.82 Rhabdomyolysis; I69.354 Hemiplegia and hemiparesis following cerebral infarction affecting left non-dominant side; C64.2 Malignant neoplasm of left kidney, except renal pelvis; N17.9 Acute kidney failure, unspecified; C78.02 Secondary malignant neoplasm of left lung; C78.01 Secondary malignant neoplasm of right lung; R04.2 Hemoptysis; G95.29 Other cord compression; Z66 Do not resuscitate; R53.1 Weakness; W19.XXXA Unspecified fall, initial encounter; Z91.81 History of falling; Y92.009 Unspecified place in unspecified non-institutional (private) residence as the place of occurrence of the external cause; N40.0 Benign prostatic hyperplasia without lower urinary tract symptoms; E78.5 Hyperlipidemia, unspecified; E03.9 Hypothyroidism, unspecified; I10 Essential (primary) hypertension; M21.372 Foot drop, left foot; R26.2 Difficulty in walking, not elsewhere classified; M25.551 Pain in right hip; G89.3 Neoplasm related pain (acute) (chronic); Z20.822 Contact with and (suspected) exposure to COVID-19
CPT/HCPCS: 36415; 70544; 70547; 73552; 74177; 80048; 80053; 82550; 85027; 87635; 93005; 96360; 96361; 97110; 97163; 97167; 97530; 97535; 99222; 99232; 99233; 99239; 99253; 99254; 99285; 70450; 70551; 71045; 71260; 72080; 72170; 82607; 83540; 83735; 85025; 93010; 99219; J3490; J7512; Q9967